=== PATIENT | male | born 1960 | race Caucasian/White ===

== ENCOUNTER 2022-05-14 09:43 | Outpatient (REF) | payer BC, SELFPAY ==
--- NOTE | 2022-05-14 11:04 | PFT_ITS ---
Forced vital capacity 71%, FEV1 42%, FEV1/FVC ratio is 45. FEF 25-75 is 15% and MVV 44%. Post bronchodilator therapy, there is only minimal improvement in FEV1 and FEF 25-75. Total lung capacity 92% and residual volume is 141% indicating air trapping. Diffusion capacity is 68%. CONCLUSION: These findings are consistent with severe obstructive airway disorder. There is a mild improvement after bronchodilator therapy, indicating a small degree of bronchospastic component. Compared to the results of 01/02/2017, the diffusion capacity is further decreased. Six minutes walk test was done. Results are as follows. Resting O2 saturation 96%. Excess and O2 saturation during exercise was 94%. Resting heart rate 116 to 133, and maximum heart rate during exercise was 133. The patient was able to walk without any obvious shortness of breath. MD SANDIE Bautista/DREA / [id number]
== END 2022-05-14 09:44 | disposition home or self-care (01) ==
LOC: HO.RESP 09:43
PROVIDERS: PCP Nurse Practitioner Family; Visit Provider Internal Medicine
DX: J44.9 Chronic obstructive pulmonary disease, unspecified (principal); G47.33 Obstructive sleep apnea (adult) (pediatric)
CPT/HCPCS: 94060; 94727; 94729

== ENCOUNTER → 2023-02-24 10:30 | Outpatient (BNVA) | payer BC, SELFPAY | PROVIDERS: PCP Nurse Practitioner Family; Visit Provider Internal Medicine ==

== ENCOUNTER 2023-09-01 10:13 | Outpatient (AMB) | payer BC, SELFPAY ==
[2023-09-01 10:27] VITALS: BP 110/68; PULSE 66; O2SAT 96; BMI 35.3
--- NOTE | 2023-09-01 10:27 | MHC.OFFVIS ---
Intake Vital Signs 09/01/23 10:27 Height 5 ft 10 in Weight 246 lb BMI 35.3 BP 110/68 Blood Pressure Location Lt brachial Position Sitting Pulse 66 Pulse Source Pulse Oximeter Pulse Oximetry (%) 96 Oxygen Delivery Method Room Air Intake Visit Reasons: DIANNA/COPD Intake Note: pt is here for follow up and states he states his breathing is getting little tuff at times, walking up stairs . Remote Encoding Center Manager Required: No Allergies No Known Allergies Allergy (Unverified 09/01/23 10:56) Medication List - Last Reconciled 09/01/23 by Tanesha Funes MD albuterol sulfate 90 mcg/actuation 2 puffs inhalation Q6H PRN apixaban (Eliquis) 5 mg PO BID diltiazem HCl 360 mg PO DAILY eupwubwhtut-muebhdlhr-svvtscys 200-62.5-25 mcg (Trelegy Ellipta) 1 ea PO DAILY metoprolol succinate ER 150 mg PO DAILY nicotine 1 patch topical DAILY Do you need a note to return to daycare/school/sports/work: No HPI DIANNA/COPD HPI Details 62 years old gentleman is moderately obese, a smoker and a case of chronic obstructive pulmonary disease. Uses Trelegy 1 inhalation daily, and albuterol HFA only once in a while. He does get short of breath on walking up hill or climbing stairs but not at level ground. He has only intermittent cough usually in the morning. Since his last visit he did have a home-based sleep study at [facility], he was put on CPAP but could not use it so returned the machine. Now he sleeps fairly well, and tries to sleep on his right side. He has not been able to lose any weight rather has gained some and this depends upon the level of fluid retention, due to chronic congestive heart failure as well as stasis edema. Still smokes but no more than 3 cigarettes a day, he has tried Chantix without much success and currently has nicotine patches at home, which he is using only as needed. 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) ENT Reports no additional complaints Card Reports rapid heart rate and Reports dyspnea on exertion Resp Reports as per HPI and Reports dyspnea on exertion GI Reports no additional complaints Reports no additional complaints Musc Reports no additional complaints Skin/Breast Reports system reviewed and no additional complaints, except as documented Neuro Reports no additional complaints and Reports loss of vision (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) Psych Reports no additional complaints Josh/Lymph Reports no additional complaints Physical Exam Vital Signs: Last Vital Signs Pulse 66 09/01/23 10:27 BP 110/68 09/01/23 10:27 Pulse Ox 96 09/01/23 10:27 Oxygen Delivery Method Room Air 09/01/23 10:27 BMI result Body Mass Index 35.3 Const General: healthy appearing (Except for being overweight), comfortable, no acute distress, alert and awake Orientation/consciousness: patient oriented x3 HEENT Head: Yes normal to inspection General nose exam: No nasal polyps present and No nasal discharge present Face and sinus: Yes sinuses nontender Mouth: oropharynx abnormals (Oropharynx is crowded, Mallampati class 4) Throat: Yes posterior oropharynx normal Eyes General: appearance normal, both eyes and all related structures Alignment and Position: other Neck Neck: Yes normal visual inspection, Yes no lymphadenopathy, Yes trachea midline, Yes no JVD and Yes other (Neck circumference 16-1/2 inch) Thyroid: Thyroid normal Chest Chest palpation & inspection: normal inspection of the chest and no tenderness Resp Other: Percussion note resonant,, Breath sounds are distant with prolonged. Expiratory phase But no wheezes rhonchi or crepitations are heard. Cardio Palpation: normal PMI Rate: tachycardic Rhythm: regular rhythm Heart sounds: no gallops and no murmurs Peripheral pulses: Peripheral pulses 2+ throughout GI Palpation (GI): Soft to palpation, nontender, No hepatosplenomegaly present and no masses Auscultation: normal bowel sounds Back/Spine/Pelvis Thoracic/Lumbar Spine: thoracic and lumbar spine normal to inspection and thoraco-lumbar ROM limited Skin General skin exam: no rashes or lesions noted Neuro General: patient oriented x3 and no focal motor deficits Cranial nerves: Yes CN's II-XII intact bilaterally Extrem General: Yes normal to inspection, Yes no calf tenderness and Yes edema (1+ pitting edema of the legs.) Psych Appearance: grossly normal and well kempt Speech and movement: Normal speech and movement present Assessment & Plan Assessment & Plan (1) Smoker: Comment: Long-time smoker. Goes back to smoking off and on, currently on nicotine patch 21 mg and using only off and on. Smoking down to 3 cigarettes a day. Code(s): F17.200 - Nicotine dependence, unspecified, uncomplicated Plan: Risk of continued smoking is explained, and strongly counseled to quit He gets his Annual low-dose CT scan of his chest at [facility] . Does have nicotine patch at home which he would use p.r.n. if there is an increase did urge to smoke. (2) COPD (chronic obstructive pulmonary disease): Comment: PULMONARY FUNCTION TEST IN 2017 CONFIRMED THAT HE HAD SEVERE OBSTRUCTIVE AIRWAY DISORDER. LAST PULMONARY FUNCTION TEST AT OUR LAB ON 05/14/22 ALSO CONFIRMED THAT HE HAS SEVERE OBSTRUCTIVE AIRWAY DISORDER. THIS IS DEFINITELY RELATED TO HIS CONTINUED SMOKING . Code(s): J44.9 - Chronic obstructive pulmonary disease, unspecified Plan: [place]: Advised to quit smoking completely as soon as possible. He is trying to do his best. Continue to use Trelegy 1 inhalation daily, Albuterol HFA 2 puffs Q 4-6 hours p.r.n. but try to keep the use as minimal as possible. (3) Obesity (BMI 30-39.9): Comment: PATIENT IS MODERATELY OBESE, NECK SIZE 16-1/2 INCH MALLAMPATI CLASS 4. HE DOES HAVE SIGNIFICANT RISK FACTOR FOR OBSTRUCTIVE SLEEP APNEA. Code(s): E66.9 - Obesity, unspecified Plan: ADVISED TO WATCH HIS DIET AND ALSO, MAY NEED ADEQUATE DIURETIC THERAPY TO KEEP THE FLUID RETENTION DOWN TO MINIMAL. (4) DIANNA (obstructive sleep apnea): Comment: HE HAS LONGSTANDING HISTORY OF OBSTRUCTIVE SLEEP APNEA, HAS NOT BEEN ABLE TO USE THE CPAP. THE LAST HOME-BASED SLEEP STUDY PERFORMED WITHIN THE LAST 6 MONTHS, DID CONFIRM DIANNA AND HE WAS STARTED ON CPAP THERAPY. ONCE AGAIN HE COULD NOT TOLERATE USE OF CPAP AND HAS GIVEN AWAY THE EQUIPMENT. HE CLAIMS THAT HE CAN SLEEP WELL LONG HE SLEEPS ON HIS RIGHT SIDE. Code(s): G47.33 - Obstructive sleep apnea (adult) (pediatric) Plan: INSTRUCTED THAT HE SHOULD TRY TO LOSE WEIGHT Coding Level of Care Code Est Pt Level 3 (32180) Diagnoses Smoker F17.200 COPD (chronic obstructive pulmonary disease) J44.9 Obesity (BMI 30-39.9) E66.9 DIANNA (obstructive sleep apnea) G47.33
== END 2023-09-01 10:58 | disposition home or self-care (01) ==
PROVIDERS: PCP Nurse Practitioner Family; Visit Provider Internal Medicine
DX: F17.200 Nicotine dependence, unspecified, uncomplicated (principal); J44.9 Chronic obstructive pulmonary disease, unspecified; E66.9 Obesity, unspecified; G47.33 Obstructive sleep apnea (adult) (pediatric)
CPT/HCPCS: 99213

== ENCOUNTER → 2023-09-01 10:13 | Outpatient (BNVA) | payer BC, SELFPAY | PROVIDERS: PCP Nurse Practitioner Family; Visit Provider Internal Medicine ==

== ENCOUNTER 2024-02-16 09:30 | Outpatient (AMB) | payer BC, SELFPAY ==
--- NOTE | 2024-02-16 09:41 | A.OFFVIS_ITS ---
Vital Signs 02/16/24 09:44 Height 5 ft 10 in Weight 249 lb 0.12 oz BMI 35.7 BP 102/64 Blood Pressure Location Lt brachial Position Sitting Pulse 112 H Pulse Source Pulse Oximeter Pulse Oximetry (%) 95 Intake Visit Reasons: chrissie/copd Intake Note: pt is here for follow up and states he has some short of breath at times. Herbicide Service Sales Representative Required: No Allergies No Known Allergies Allergy (Unverified 02/16/24 09:59) Medication List - Last Reconciled 02/16/24 by Tanesha Funes MD albuterol sulfate 90 mcg/actuation 2 puffs inhalation Q6H PRN apixaban (Eliquis) 5 mg PO BID diltiazem HCl CD 360 mg PO DAILY tmfviwrmsxo-zqplkvhdt-bqydvlnm 200-62.5-25 mcg (Trelegy Ellipta) 1 ea PO DAILY metoprolol succinate ER 150 mg PO DAILY Do you need a note to return to daycare/school/sports/work: No HPI HPI chrissie/copd: Details: 63 YEARS OLD GENTLEMAN WHO IS MODERATELY OBESE AND DOES HAVE HISTORY OF OBSTRUCTIVE SLEEP APNEA BUT COULD NOT TOLERATE THE CPAP, HE CLAIMS. THAT HE SLEEPS OKAY ,HE IS IS SMOKER HAS CUT DOWN TO HALF PACK A DAY, HAS LONGSTANDING HISTORY OF COPD, USING TRELEGY 1 INHALATION DAILY AND ALBUTEROL ONLY NEEDED. HE COMPLAINS OF MILD INTERMITTENT COUGH WHICH IS MOST LIKELY RELATED, TO SMOKING AND ALSO SHORTNESS OF BREATH ON EXERTION. HE IS IN ANNUAL LUNG SCREENING PROGRAM AT [facility]. 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) ENT Reports no additional complaints Card Reports rapid heart rate and Reports dyspnea on exertion Resp Reports as per HPI and Reports dyspnea on exertion GI Reports no additional complaints Reports no additional complaints Musc Reports no additional complaints Skin/Breast Reports system reviewed and no additional complaints, except as documented Neuro Reports no additional complaints and Reports loss of vision (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) Psych Reports no additional complaints Josh/Lymph Reports no additional complaints Physical Exam Vital Signs: Last Vital Signs Pulse 112 H 02/16/24 09:44 BP 102/64 02/16/24 09:44 Pulse Ox 95 02/16/24 09:44 BMI result Body Mass Index 35.7 Const General: healthy appearing (Except for being overweight), comfortable, no acute distress, alert and awake Orientation/consciousness: patient oriented x3 HEENT Head: Yes normal to inspection General nose exam: No nasal polyps present and No nasal discharge present Face and sinus: Yes sinuses nontender Mouth: oropharynx abnormals (Oropharynx is crowded, Mallampati class 4) Throat: Yes posterior oropharynx normal Eyes General: appearance normal, both eyes and all related structures Alignment and Position: other Neck Neck: Yes normal visual inspection, Yes no lymphadenopathy, Yes trachea midline, Yes no JVD and Yes other (Neck circumference 16-1/2 inch) Thyroid: Thyroid normal Chest Chest palpation & inspection: normal inspection of the chest and no tenderness Resp Other: Percussion note resonant,, Breath sounds are distant with prolonged. Expiratory phase Has a few expiratory wheezes over the left mid chest, no crepitations. Cardio Palpation: normal PMI Rate: tachycardic Rhythm: regular rhythm Heart sounds: no gallops and no murmurs Peripheral pulses: Peripheral pulses 2+ throughout GI Palpation (GI): Soft to palpation, nontender, No hepatosplenomegaly present and no masses Auscultation: normal bowel sounds Back/Spine/Pelvis Thoracic/Lumbar Spine: thoracic and lumbar spine normal to inspection and thoraco-lumbar ROM limited Skin General skin exam: no rashes or lesions noted Neuro General: patient oriented x3 and no focal motor deficits Cranial nerves: Yes CN's II-XII intact bilaterally Extrem General: Yes normal to inspection, Yes no calf tenderness and Yes edema (1+ pitting edema of the legs.) Psych Appearance: grossly normal and well kempt Speech and movement: Normal speech and movement present Assessment & Plan Assessment & Plan (1) Smoker: Comment: Long-time smoker. Goes back to smoking off and on, has tried everything but did not work . Currently smoking half pack of cigarettes a day. Code(s): F17.200 - Nicotine dependence, unspecified, uncomplicated Category: Social Hx Plan: Counseled to quit smoking, and at least cut down the number of cigarettes gradually. Risks of continued smoking explained. (2) COPD (chronic obstructive pulmonary disease): Comment: PULMONARY FUNCTION TEST IN 2017 CONFIRMED THAT HE HAD SEVERE OBSTRUCTIVE AIRWAY DISORDER. LAST PULMONARY FUNCTION TEST AT OUR LAB ON 05/14/22 ALSO CONFIRMED THAT HE HAS SEVERE OBSTRUCTIVE AIRWAY DISORDER. THIS IS DEFINITELY RELATED TO HIS CONTINUED SMOKING . Code(s): J44.9 - Chronic obstructive pulmonary disease, unspecified Category: Medical Plan: Trelegy Ellipta 1 inhalation daily. Albuterol HFA 2 puffs Q 4-6 hours p.r.n.. (3) CHRISSIE (obstructive sleep apnea): Comment: HE HAS LONGSTANDING HISTORY OF OBSTRUCTIVE SLEEP APNEA, HAS NOT BEEN ABLE TO USE THE CPAP. HE CLAIMS THAT HE SLEEPS FAIRLY WELL. Code(s): G47.33 - Obstructive sleep apnea (adult) (pediatric) Category: Medical Plan: COUNSELED THAT HE MUST TRY TO CUT DOWN HIS WEIGHT. AND ALSO ADVISED TO SLEEP. IN LATERAL POSITION Coding Level of Care Code Est Pt Level 3 (61781) Diagnoses Smoker F17.200 COPD (chronic obstructive pulmonary disease) J44.9 CHRISSIE (obstructive sleep apnea) G47.33
[2024-02-16 09:44] VITALS: BP 102/64; PULSE 112; O2SAT 95; BMI 35.7
== END 2024-02-16 10:10 | disposition home or self-care (01) ==
PROVIDERS: PCP Nurse Practitioner Family; Visit Provider Internal Medicine
DX: F17.200 Nicotine dependence, unspecified, uncomplicated (principal); J44.9 Chronic obstructive pulmonary disease, unspecified; G47.33 Obstructive sleep apnea (adult) (pediatric)
CPT/HCPCS: 99213

== ENCOUNTER → 2024-02-16 09:30 | Outpatient (BNVA) | payer BC, SELFPAY | PROVIDERS: PCP Nurse Practitioner Family; Visit Provider Internal Medicine ==

== ENCOUNTER 2024-05-18 12:56 | Outpatient (AMB) | payer BC, SELFPAY ==
[2024-05-18 13:19] VITALS: BP 110/62; PULSE 90; O2SAT 94; BMI 35.4
--- NOTE | 2024-05-18 13:19 | MHC.OFFVIS ---
Vital Signs 05/18/24 13:19 Height 5 ft 10 in Weight 247 lb BMI 35.4 BP 110/62 Blood Pressure Location Lt brachial Position Sitting Pulse 90 Pulse Source Pulse Oximeter Pulse Oximetry (%) 94 Oxygen Delivery Method Room Air Intake Visit Reasons: DIANNA/COPD Intake Note: pt is here for follow up and states shortness of breath at times, any activities is causing this. Medical Records Library Professor Required: No Allergies No Known Allergies Allergy (Unverified 05/18/24 13:48) Medication List - Last Reconciled 05/18/24 by Tanesha Funes MD albuterol sulfate 90 mcg/actuation 2 puffs inhalation Q6H PRN apixaban (Eliquis) 5 mg PO BID diltiazem HCl CD 360 mg PO DAILY nxekklxpuro-ettdbimbu-nqcibvro 200-62.5-25 mcg (Trelegy Ellipta) 1 ea PO DAILY hydroxyzine HCl 25 mg PO QID PRN metoprolol succinate ER 150 mg PO DAILY Do you need a note to return to daycare/school/sports/work: No HPI HPI DIANNA/COPD: Details: This 63 years old gentleman is a known case of severe obstructive lung disorder, for the past many years, as evident on his pulmonary function test back in 2007. It has gradually worsened . He continues to smoke half pack of cigarettes a day. He is on maximum treat moment including Trelegy 1 inhalation daily and albuterol p.r.n.. He gets short of breath quite often but is afraid use albuterol due to his atrial fibrillation and rapid heart rate. He does have atrial fibrillation and is on anticoagulation wi,th Eliq uis he is on diltiazem and metoprolol for rate control. Lately he has been getting some fluid retention in the legs. 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) ENT Reports no additional complaints Card Reports rapid heart rate and Reports dyspnea on exertion Resp Reports as per HPI and Reports dyspnea on exertion GI Reports no additional complaints Reports no additional complaints Musc Reports no additional complaints Skin/Breast Reports system reviewed and no additional complaints, except as documented Neuro Reports no additional complaints and Reports loss of vision (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) Psych Reports no additional complaints Josh/Lymph Reports no additional complaints Physical Exam Vital Signs: Last Vital Signs Pulse 90 05/18/24 13:19 BP 110/62 05/18/24 13:19 Pulse Ox 94 05/18/24 13:19 Oxygen Delivery Method Room Air 05/18/24 13:19 BMI result Body Mass Index 35.4 Const General: healthy appearing (Except for being overweight), comfortable, no acute distress, alert and awake Orientation/consciousness: patient oriented x3 HEENT Head: Yes normal to inspection General nose exam: No nasal polyps present and No nasal discharge present Face and sinus: Yes sinuses nontender Mouth: oropharynx abnormals (Oropharynx is crowded, Mallampati class 4) Throat: Yes posterior oropharynx normal Eyes General: appearance normal, both eyes and all related structures Alignment and Position: other Neck Neck: Yes normal visual inspection, Yes no lymphadenopathy, Yes trachea midline, Yes no JVD and Yes other (Neck circumference 16-1/2 inch) Thyroid: Thyroid normal Chest Chest palpation & inspection: normal inspection of the chest and no tenderness Resp Other: Percussion note resonant,, Breath sounds are distant with prolonged. Expiratory phase Has a few expiratory wheezes over the left mid chest, no crepitations. Cardio Palpation: normal PMI Rate: tachycardic Rhythm: regular rhythm Heart sounds: no gallops and no murmurs Peripheral pulses: Peripheral pulses 2+ throughout GI Palpation (GI): Soft to palpation, nontender, No hepatosplenomegaly present and no masses Auscultation: normal bowel sounds Back/Spine/Pelvis Thoracic/Lumbar Spine: thoracic and lumbar spine normal to inspection and thoraco-lumbar ROM limited Skin General skin exam: no rashes or lesions noted Neuro General: patient oriented x3 and no focal motor deficits Cranial nerves: Yes CN's II-XII intact bilaterally Extrem General: Yes normal to inspection, Yes no calf tenderness and Yes edema (2+ pitting edema of the legs.) Psych Appearance: grossly normal and well kempt Speech and movement: Normal speech and movement present Office Procedures 6 Minute Walk Time:: 13:55 SPO2 % at rest: 94 Pulse at rest: 92 SPO2 % during excercise: 86 Pulse during excercise: 173 SPO2 % after excercise: 94 Pulse after excercise: 99 Distance in yards walked: 50 Jake Score: 7 Performance Observations:: Eber walked on level ground without assistance, he walked for 15 yards before his HR increased to 134 bpm, with a brief rest his HR recovered to 100 bpm. He walked another 10 yards and his HR increased to 150 bpm and recovered to 98 bpm with a brief rest. At 50 yards his SPO2 decreased to 86% on room air and his HR increased to 173 bpm (denies chest pain or increased SOB). O2 started at 2 lpm and his SPO2 recovered to 94% and the walk was terminated due to his HR. With rest his HR recovered to [address] [place]. [id number] - 6 Minute Walk Spirometry Testing Spirometry Comments: Spirometry done in the office, Dr. Funes has the results results scanned to his chart. [id number]- Spirometry Results Reviewed Results Reviewed: SPIROMETRY FVC 43%, FEV1 26%, FEV1/FVC 47, FEF 25-75 = 14% C/W SEVERE OBSTRUCTIVE AIRWAY DISORDER AND IS DEFINITELY WORSE COMPARED TO 2021. 6 MINUTES WALK TEST . O2 SAT DIPS DOWN TO 87% AND HEART RATE JUMPED UP TO 173 PER MINUTE Assessment & Plan Assessment & Plan (1) Smoker: Comment: Long-time smoker. Goes back to smoking off and on, has tried everything but did not work . Currently smoking half pack of cigarettes a day. Code(s): F17.200 - Nicotine dependence, unspecified, uncomplicated Category: Social Hx Plan: BECAUSE OF HIS WORSENING STATUS OF COPD ,AND QUICK DESATURATION ON WALKING, I HAVE STRESSED THAT HE MUST STOP SMOKING COMPLETELY. AND HE SEEMS TO BE WELL MOTIVATED AT THIS TIME. (2) COPD (chronic obstructive pulmonary disease): Comment: PULMONARY FUNCTION TEST IN 2017 CONFIRMED THAT HE HAD SEVERE OBSTRUCTIVE AIRWAY DISORDER. LAST PULMONARY FUNCTION TEST AT OUR LAB ON 05/14/22 ALSO CONFIRMED THAT HE HAS SEVERE OBSTRUCTIVE AIRWAY DISORDER. THIS IS DEFINITELY RELATED TO HIS CONTINUED SMOKING . SPIROMETRY TODAY SHOWS THAT HIS OBSTRUCTIVE COMPONENT IS MUCH WORSE. Code(s): J44.9 - Chronic obstructive pulmonary disease, unspecified Category: Medical Plan: TRELEGY 1 INHALATION DAILY. LEVALBUTEROL 1 OR 2 PUFFS Q 6 HOURS P.R.N. ( ALBUTEROL IS STOP BECAUSE OF TACHYCARDIA) (3) DIANNA (obstructive sleep apnea): Comment: HE HAS LONGSTANDING HISTORY OF OBSTRUCTIVE SLEEP APNEA, HAS NOT BEEN ABLE TO USE THE CPAP. HE CLAIMS THAT HE SLEEPS FAIRLY WELL. WE NEED TO CHECK HIM FOR NOCTURNAL HYPOXEMIA . Code(s): G47.33 - Obstructive sleep apnea (adult) (pediatric) Category: Medical Plan: OVERNIGHT OXIMETRY RECORDING IS ORDERED (4) Hypoxemia: Comment: BECAUSE OF HIS ADVANCED CHRONIC OBSTRUCTIVE PULMONARY DISEASE, AND ASSOCIATED ATRIAL FIBRILLATION WITH MILD CONGESTIVE HEART FAILURE, I SUSPECTED THAT HE HAS EXERTIONAL HYPOXEMIA. IT IS CONFIRMED W.ITH 6 MINUTES WALK TEST HE WAS STARTED ON O2 2 L/MINUTE AND FELT BETTER. Code(s): R09.02 - Hypoxemia Category: Medical Plan: O2 PRESCRIBED FOR HOME USE . 2 L/MINUTE WITH, PORTABLE UNIT FOR ANY PHYSICAL ACTIVITY. MAY ALSO USE 2 L/MINUTE AT REST. IF HE IS MORE SHORT OF BREATH WILL NEED TO BE CHECKED FOR NOCTURNAL HYPOXEMIA AND IF THAT IS THE CASE THEN HE WOULD NEED O2 2 L/MINUTE AT NIGHT WELL Orders: Orders AMB Spirometry Testing Today J44.9 - Chronic obstructive pulmonary disease, unspecified Coding Level of Care Code Est Pt Level 4 (22074) Diagnoses Smoker F17.200 COPD (chronic obstructive pulmonary disease) J44.9 DIANNA (obstructive sleep apnea) G47.33 Hypoxemia R09.02 CPT Codes Coding ([id number]) Spirometry - CPT: 13821- Spirometry ([id number])
[2024-05-18 14:09] VITALS: PULSE 92; O2SAT 94
== END 2024-05-18 14:14 | disposition home or self-care (01) ==
PROVIDERS: PCP Family Medicine; Visit Provider Internal Medicine
DX: F17.200 Nicotine dependence, unspecified, uncomplicated (principal); J44.9 Chronic obstructive pulmonary disease, unspecified; G47.33 Obstructive sleep apnea (adult) (pediatric); R09.02 Hypoxemia
CPT/HCPCS: 94010; 94618; 99214

== ENCOUNTER → 2024-05-18 12:56 | Outpatient (BNVA) | payer BC, SELFPAY | PROVIDERS: Visit Provider Internal Medicine | DX: J44.9 Chronic obstructive pulmonary disease, unspecified (principal); R09.02 Hypoxemia; G47.33 Obstructive sleep apnea (adult) (pediatric); F17.210 Nicotine dependence, cigarettes, uncomplicated | CPT/HCPCS: 94010; 94618 ==

== ENCOUNTER 2024-06-07 14:06 | Outpatient (AMB) | payer BC, SELFPAY ==
[2024-06-07 14:16] VITALS: BP 112/64; PULSE 86; O2SAT 98
--- NOTE | 2024-06-07 14:16 | A.OFFVIS_ITS ---
Vital Signs 06/07/24 14:16 Weight 249 lb 1.957 oz BP 112/64 Blood Pressure Location Rt brachial Position Sitting Pulse 86 Pulse Source Pulse Oximeter Pulse Oximetry (%) 98 Oxygen Delivery Method Room Air Intake Visit Reasons: DIANNA/COPD Allergies No Known Allergies Allergy (Unverified 06/07/24 14:50) Medication List - Last Reconciled 06/07/24 by Tanesha Funes MD albuterol sulfate 90 mcg/actuation 2 puffs inhalation Q6H PRN apixaban (Eliquis) 5 mg PO BID diltiazem HCl CD 360 mg PO DAILY gwmeqeexspu-rxrnlygbn-qrhrljpp 200-62.5-25 mcg (Trelegy Ellipta) 1 ea PO DAILY hydroxyzine HCl 25 mg PO QID PRN metoprolol succinate ER 150 mg PO DAILY Do you need a note to return to daycare/school/sports/work: No HPI HPI DIANNA/COPD: Details: THIS 63 YEARS OLD GENTLEMAN IS HERE FOR FOLLOW-UP. FAR COPD IS CONCERNED IT SEEMS TO BE WELL CONTROLLED BY USING TRELEGY ONCE A DAY. HE HAS NOT USE ALBUTEROL TOO MUCH BECAUSE HE IS AFRAID IT MAKES HIS HEART BEAT FAST. HE HAS VERY LITTLE COUGH. HE DOES USE OXYGEN WHEN HE WALKS AROUND, BUT ACTUALLY IT IS THE 1ST TIME THAT HE HAS COME OUT OF THE HOUSE FOR OFFICE VISIT. HE ALSO HAS ATRIAL FIBRILLATION AND IS AFRAID OF RUNNING INTO TACHYARRHYTHMIAS WITH THE USE OF ALBUTEROL . HE DOES USE OF JOSE 2 L/MINUTE AT NIGHT AND WITH THE PORTABLE UNIT IF HE COMES OUTDOORS BUT ACCORDING TO HIS HE DOES NOT MOVE AROUND MUCH. 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) ENT Reports no additional complaints Card Reports rapid heart rate and Reports dyspnea on exertion Resp Reports as per HPI and Reports dyspnea on exertion GI Reports no additional complaints Reports no additional complaints Musc Reports no additional complaints Skin/Breast Reports system reviewed and no additional complaints, except as documented Neuro Reports no additional complaints and Reports loss of vision (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) Psych Reports no additional complaints Josh/Lymph Reports no additional complaints Physical Exam Vital Signs: Last Vital Signs Pulse 86 06/07/24 14:16 BP 112/64 06/07/24 14:16 Pulse Ox 98 06/07/24 14:16 Oxygen Delivery Method Room Air 06/07/24 14:16 Const General: healthy appearing (Except for being overweight), comfortable, no acute distress, alert and awake Orientation/consciousness: patient oriented x3 HEENT Head: Yes normal to inspection General nose exam: No nasal polyps present and No nasal discharge present Face and sinus: Yes sinuses nontender Mouth: oropharynx abnormals (Oropharynx is crowded, Mallampati class 4) Throat: Yes posterior oropharynx normal Eyes General: appearance normal, both eyes and all related structures Alignment and Position: other Neck Neck: Yes normal visual inspection, Yes no lymphadenopathy, Yes trachea midline, Yes no JVD and Yes other (Neck circumference 16-1/2 inch) Thyroid: Thyroid normal Chest Chest palpation & inspection: normal inspection of the chest and no tenderness Resp Other: Percussion note resonant,, Breath sounds are distant with prolonged. Expiratory phase Has a few expiratory wheezes over the left mid chest, no crepitations. Cardio Palpation: normal PMI Rate: tachycardic Rhythm: regular rhythm Heart sounds: no gallops and no murmurs Peripheral pulses: Peripheral pulses 2+ throughout GI Palpation (GI): Soft to palpation, nontender, No hepatosplenomegaly present and no masses Auscultation: normal bowel sounds Back/Spine/Pelvis Thoracic/Lumbar Spine: thoracic and lumbar spine normal to inspection and thoraco-lumbar ROM limited Skin General skin exam: no rashes or lesions noted Neuro General: patient oriented x3 and no focal motor deficits Cranial nerves: Yes CN's II-XII intact bilaterally Extrem General: Yes normal to inspection, Yes no calf tenderness and Yes edema (2+ pitting edema of the legs.) Psych Appearance: grossly normal and well kempt Speech and movement: Normal speech and movement present Results Reviewed Results Reviewed: WALKED IN THE HALLWAY FOR 4 MINUTES WITH O2 2 L/MINUTE AND THERE WAS NO SIGNIFICANT DROP IN THE O2 SAT. RESTING O2 SAT 96%. AFTER WALK IT WAS 94% Assessment & Plan Assessment & Plan (1) COPD (chronic obstructive pulmonary disease): Comment: PULMONARY FUNCTION TEST IN 2017 CONFIRMED THAT HE HAD SEVERE OBSTRUCTIVE AIRWAY DISORDER. LAST PULMONARY FUNCTION TEST AT OUR LAB ON 05/14/22 ALSO CONFIRMED THAT HE HAS SEVERE OBSTRUCTIVE AIRWAY DISORDER. THIS IS DEFINITELY RELATED TO HIS CONTINUED SMOKING . SPIROMETRY TODAY SHOWS THAT HIS OBSTRUCTIVE COMPONENT IS MUCH WORSE. Code(s): J44.9 - Chronic obstructive pulmonary disease, unspecified Category: Medical Plan: CONTINUE TRELEGY ELLIPTA 1 INHALATION DAILY; LEVALBUTEROL-45 2 PUFFS Q 4-6 HOURS P.R.N. FOR ACUTE WHEEZING OR SHORTNESS OF BREATH. (2) Hypoxemia: Comment: BECAUSE OF HIS ADVANCED CHRONIC OBSTRUCTIVE PULMONARY DISEASE, AND ASSOCIATED ATRIAL FIBRILLATION WITH MILD CONGESTIVE HEART FAILURE, I SUSPECTED THAT HE HAS EXERTIONAL HYPOXEMIA. IT IS CONFIRMED W.ITH 6 MINUTES WALK TEST HE IS ADVISED TO USE O2 2 L/MINUTE Code(s): R09.02 - Hypoxemia Category: Medical Plan: HE IS ADVISED TO USE O2 2 L/MINUTE WITH ANY PHYSICAL ACTIVITY ON WHEN GOING OUTDOORS. (3) Smoker: Comment: Long-time smoker. Goes back to smoking off and on, has tried everything but did not work . Currently smoking half pack of cigarettes a day. Code(s): F17.200 - Nicotine dependence, unspecified, uncomplicated Category: Social Hx Plan: AGAIN TALKED TO HIM ABOUT SMOKING AND URGED THAT HE SHOULD QUIT SMOKING COMPLETELY (4) DIANNA (obstructive sleep apnea): Comment: HE HAS LONGSTANDING HISTORY OF OBSTRUCTIVE SLEEP APNEA, HAS NOT BEEN ABLE TO USE THE CPAP. HE CLAIMS THAT HE SLEEPS FAIRLY WELL. WE NEED TO CHECK HIM FOR NOCTURNAL HYPOXEMIA . Code(s): G47.33 - Obstructive sleep apnea (adult) (pediatric) Category: Medical Plan: NOW THAT HE DOES HAVE OXYGEN AT HOME I WOULD ADVISE HIM TO USE O2 2 L/MINUTE AT NIGHT WHEN SLEEPING Medications: New levalbuterol tartrate 45 mcg/actuation 2 puffs inhalation Q4-6H 30 days PRN 15 grams 3RF shortness of breath Coding Level of Care Code Est Pt Level 4 (92374) Diagnoses COPD (chronic obstructive pulmonary disease) J44.9 Hypoxemia R09.02 Smoker F17.200 DIANNA (obstructive sleep apnea) G47.33
== END 2024-06-07 14:48 | disposition home or self-care (01) ==
PROVIDERS: PCP Family Medicine; Visit Provider Internal Medicine
DX: J44.9 Chronic obstructive pulmonary disease, unspecified (principal); R09.02 Hypoxemia; F17.200 Nicotine dependence, unspecified, uncomplicated; G47.33 Obstructive sleep apnea (adult) (pediatric)
CPT/HCPCS: 99214

== ENCOUNTER → 2024-06-07 14:06 | Outpatient (BNVA) | payer BC, SELFPAY | PROVIDERS: PCP Family Medicine; Visit Provider Internal Medicine | DX: J44.9 Chronic obstructive pulmonary disease, unspecified (principal) ==

== ENCOUNTER 2024-10-05 11:03 | Outpatient (AMB) | payer BC, SELFPAY ==
--- NOTE | 2024-10-05 11:20 | A.OFFVIS_ITS ---
Vital Signs 10/05/24 11:21 Height 5 ft 10 in Weight 270 lb 1.06 oz BMI 38.7 BP 102/70 Blood Pressure Location Lt brachial Position Sitting Pulse 82 Pulse Source Pulse Oximeter Pulse Oximetry (%) 98 Oxygen Delivery Method Nasal Cannula Oxygen Flow Rate 2 Intake Visit Reasons: DIANNA/COPD Intake Note: pt is here for follow up and states he it is hard to do things, sleeping is not good, but oxygen is 2 liters at night. Hardware Sales Assistant Required: No Allergies No Known Allergies Allergy (Unverified 10/05/24 11:43) Medication List - Last Reconciled 10/05/24 by Tanesha Funes MD albuterol sulfate 90 mcg/actuation 2 puffs inhalation Q6H PRN apixaban (Eliquis) 5 mg PO BID diltiazem HCl CD 360 mg PO DAILY rjjzedktwqb-dsvifmmiz-bjzkaewv 200-62.5-25 mcg (Trelegy Ellipta) 1 ea PO DAILY hydroxyzine HCl 25 mg PO QID PRN levalbuterol tartrate 45 mcg/actuation 2 puffs inhalation Q4-6H PRN 30 days metoprolol succinate ER 150 mg PO DAILY Do you need a note to return to daycare/school/sports/work: No HPI HPI DIANNA/COPD: Details: THIS 63 YEARS OLD GENTLEMAN GROSSLY OBESE, HAS SEVERE OBSTRUCTIVE AIRWAY DISORDER. HE HAS HAD LONGSTANDING HISTORY OF SMOKING BUT LUCKILY HAS QUIT RECENTLY. HAS GAINED SOME WEIGHT WHICH IS PROBABLY DUE TO SMOKING CESSATION. REMAINS SHORT OF BREATH ON ANY EXERTION, IT IS HELPED BY PORTABLE OXYGEN. HE ALSO HAS HISTORY OF OBSTRUCTIVE SLEEP APNEA BUT COULD NOT USE THE CPAP. HE USES O2 2 L/MINUTE AT NIGHT, AND NOW HE HAS PORTABLE O2, USING 2 L/MINUTE WITH ANY PHYSICAL EXERTION. HE DOES GET SHORT OF BREATH ON MINIMAL WALKING. DENIES ANY COUGH OR WHEEZING. USES TRELEGY ELLIPTA 1 INHALATION DAILY AND LEVALBUTEROL ONLY NEEDED. 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) ENT Reports no additional complaints Card Reports rapid heart rate and Reports dyspnea on exertion Resp Reports as per HPI and Reports dyspnea on exertion GI Reports no additional complaints Reports no additional complaints Musc Reports no additional complaints Skin/Breast Reports system reviewed and no additional complaints, except as documented Neuro Reports no additional complaints and Reports loss of vision (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) Psych Reports no additional complaints Josh/Lymph Reports no additional complaints Physical Exam Vital Signs: Last Vital Signs Pulse 82 10/05/24 11:21 BP 102/70 10/05/24 11:21 Pulse Ox 98 10/05/24 11:21 Oxygen Delivery Method Nasal Cannula 10/05/24 11:21 Oxygen Flow Rate 2 10/05/24 11:21 BMI result Body Mass Index 38.7 Const General: healthy appearing (Except for being overweight), comfortable, no acute distress, alert and awake Orientation/consciousness: patient oriented x3 HEENT Head: Yes normal to inspection General nose exam: No nasal polyps present and No nasal discharge present Face and sinus: Yes sinuses nontender Mouth: oropharynx abnormals (Oropharynx is crowded, Mallampati class 4) Throat: Yes posterior oropharynx normal Eyes General: appearance normal, both eyes and all related structures Alignment and Position: other Neck Neck: Yes normal visual inspection, Yes no lymphadenopathy, Yes trachea midline, Yes no JVD and Yes other (Neck circumference 16-1/2 inch) Thyroid: Thyroid normal Chest Chest palpation & inspection: normal inspection of the chest and no tenderness Resp Other: Percussion note resonant,, Breath sounds are distant with prolonged. Expiratory phase No wheezes or crepitations are heard today. Cardio Palpation: normal PMI Rate: tachycardic Rhythm: regular rhythm Heart sounds: no gallops and no murmurs Peripheral pulses: Peripheral pulses 2+ throughout GI Palpation (GI): Soft to palpation, nontender, No hepatosplenomegaly present and no masses Auscultation: normal bowel sounds Back/Spine/Pelvis Thoracic/Lumbar Spine: thoracic and lumbar spine normal to inspection and thoraco-lumbar ROM limited Skin General skin exam: no rashes or lesions noted Neuro General: patient oriented x3 and no focal motor deficits Cranial nerves: Yes CN's II-XII intact bilaterally Extrem General: Yes normal to inspection, Yes no calf tenderness and Yes edema (only trace of pitting edema, controlled with compression stockings.) Psych Appearance: grossly normal and well kempt Speech and movement: Normal speech and movement present Assessment & Plan Assessment & Plan (1) COPD (chronic obstructive pulmonary disease): Comment: PULMONARY FUNCTION TEST IN 2017 CONFIRMED THAT HE HAD SEVERE OBSTRUCTIVE AIRWAY DISORDER. LAST PULMONARY FUNCTION TEST AT OUR LAB ON 05/14/22 ALSO CONFIRMED THAT HE HAS SEVERE OBSTRUCTIVE AIRWAY DISORDER. SPIROMETRY ON 11/18/2023 AGAIN SHOWED SEVERE OBSTRUCTIVE AIRWAY DISORDER, SLIGHTLY WORSE THAN BEFORE. THIS WAS CONSIDERED TO BE DUE TO CONTINUED SMOKING. NOW THAT HE IS NOT SMOKING HIS LUNG SEEM TO BE MORE CLEAR. Code(s): J44.9 - Chronic obstructive pulmonary disease, unspecified Category: Medical Plan: CONTINUE TRELEGY ELLIPTA 1 INHALATION DAILY USE LEVALBUTEROL HFA 2 PUFFS Q 4-6 HOURS ONLY P.R.N., . BUT AVOID ANY EXCESSIVE USE HE IS COMMENDED FOR QUITTING SMOKING COMPLETELY. (2) DIANNA (obstructive sleep apnea): Comment: HE HAS LONGSTANDING HISTORY OF OBSTRUCTIVE SLEEP APNEA, HAS NOT BEEN ABLE TO USE THE CPAP. HE CLAIMS THAT HE SLEEPS FAIRLY WELL. HE DOES HAVE NOCTURNAL HYPOXEMIA WHICH IS BEING TREATED WITH O2 SUPPLEMENTATION. Code(s): G47.33 - Obstructive sleep apnea (adult) (pediatric) Category: Medical Plan: CONTINUE TO USE O2 2 L/MINUTE AT NIGHT. (3) Hypoxemia: Comment: BECAUSE OF HIS ADVANCED CHRONIC OBSTRUCTIVE PULMONARY DISEASE, AND ASSOCIATED ATRIAL FIBRILLATION WITH MILD CONGESTIVE HEART FAILURE, I IN ADDITION TO NOCTURNAL HYPOXEMIA HE WAS ALSO FOUND TO HAVE EXERCISE INDUCED HYPOXEMIA, AND STARTED ON O2 WITH PORTABLE UNIT. HE DOES USE O2 DURING THE DAYTIME FOR ANY PHYSICAL EXERTION, ESPECIALLY BEFORE GOING FOR SHOWERS. Code(s): R09.02 - Hypoxemia Category: Medical Plan: I ENCOURAGED HIM TO KEEP USING OXYGEN AT NIGHT AND ALSO USE 2 L/MINUTE DURING THE DAYTIME WITH ANY PHYSICAL EXERTION. (4) Smoker: Comment: Long-time smoker. Goes back to smoking off and on, has tried everything but did not work . At present he has stop smoking completely, and is determined to stay off smoking. Code(s): F17.200 - Nicotine dependence, unspecified, uncomplicated Category: Social Hx Plan: Commended for stopping smoking completely. And encouraged not to go back to smoking. Coding Level of Care Code Est Pt Level 3 (39570) Diagnoses COPD (chronic obstructive pulmonary disease) J44.9 DIANNA (obstructive sleep apnea) G47.33 Hypoxemia R09.02 Smoker F17.200
[2024-10-05 11:21] VITALS: BP 102/70; PULSE 82; O2SAT 98; BMI 38.7
== END 2024-10-05 11:40 | disposition home or self-care (01) ==
PROVIDERS: PCP Family Medicine; Visit Provider Internal Medicine
DX: J44.9 Chronic obstructive pulmonary disease, unspecified (principal); G47.33 Obstructive sleep apnea (adult) (pediatric); R09.02 Hypoxemia; F17.200 Nicotine dependence, unspecified, uncomplicated
CPT/HCPCS: 99213

== ENCOUNTER → 2025-01-31 07:44 | Day surgery (SDC) | payer BC, SELFPAY ==
--- OUTSIDE RECORDS SUMMARY | 2025-01-18 13:13 | XMS_ITS | Patient Health Record ---
Author Organization [facility] Address [address] [place] [address] Care Team Providers Care Forestry Crew Chief Name Role Phone Ingrid MCCAULEY, Tanya Primary Care Provider Jose Guzmán Unavailable [phone] Allergies No Known Allergies Reason For Referral No Information Medications Medication SIG (Take, Route, Frequency, Duration) Notes Start Date End Date Status Cholecalciferol 25 MCG (1000 UT) 1 capsule Orally Once a day for 30 day(s) Active Advair HFA Active Spiriva Respimat 2.5 MCG/ACT 2 puffs Inh alation Once a day Active Docusate Sodium 100 MG 1 capsule as need ed Orally Once a day for 30 day(s) Active Social History Tobacco Use: Social History Observation Description Date Details (start date - stop date) Current Smoker 10/04/1979 - NA Tobacco Use/Smoking Question Answer Notes Are you a: current smoker When did you start smoking? 10/04/1979 How often do you smoke cigarettes? every day How many cigarettes a day do you smoke? 11-20 Alcohol Screen Question Answer Notes Did you have a drink containing alcohol in the p ast year? No Points 0 Interpretation Negative Tobacco use other than smoking: Question Answer Notes Are you an other tobacco user? No Plan Of Treatment Pending Test Test Name Order Date [id number] Plate 12/07/2020 Insurance Providers Payer Name Payer Address Payer Phone Subscriber Number Group Number Insured Name Patient Relationship to Insured Coverage Start Date Coverage End Date [facility] [address] [place] [address] [phone] [id number] Eber Jordan Self - patient is the insured Medical (General) History Medical History History ICD Code COPD Anxiety disorder Diverticulosis Inguinal Hernia Surgical History Surgery Date(Month/Year) hernia repair mars inguinal 05/04/2020 prostate biopsy Lipoma resection from back
[2025-01-27 13:08] VITALS: BMI 39.2
--- NOTE | 2025-01-30 09:52 | HO.ANESPROP2 ---
HPI - Anesthesia Eval Consult details Narrative: 64yo M for Colonoscopy Follows [facility] cardiology for aflutter (eliquis) [facility] Active Problems Active Problems: All Active Problems Hypoxemia (Acute) Smoker (Acute) COPD (chronic obstructive pulmonary disease) (Acute) DIANNA (obstructive sleep apnea) (Acute) Obesity (BMI 30-39.9) (Acute) Past Medical History Medical History (Updated 01/27/25 @ 13:07 by Soco Kimble RN) Atrial flutter Hypoxemia Smoker COPD (chronic obstructive pulmonary disease) DIANNA (obstructive sleep apnea) Obesity (BMI 30-39.9) Surgical History Surgical History (Updated 01/27/25 @ 13:08 by Soco Kimble RN) Hx of hernia repair H/O colonoscopy Social History Social History (Updated 01/27/25 @ 13:08 by Soco Kimble RN) Household Members: Spouse Patient Tobacco Use Status: Former Tobacco user Tobacco use type: Cigarette Cigarette Packs Per Day: 0.5 Cigarettes Per Day: 5 Years Smoked: 35 Meds Allergies Allergy/AdvReac Type Severity Reaction Status Date / Time No Known Allergies Allergy Unverified 10/05/24 11:43 Home Medications ?Medication ?Instructions ?Recorded ?Confirmed ?Last Taken ?Type apixaban 5 mg tablet (Eliquis) 5 mg PO BID 04/10/22 01/27/25 Unknown History fluticasone fur. 200 mcg-umeclid 1 ea PO DAILY 04/10/22 01/27/25 Unknown History 62.5 mcg-vilant 25 mcg inhalat.powder (Trelegy Ellipta) albuterol sulfate 90 mcg/actuation 2 puff inhalation Q6H PRN 05/20/22 01/27/25 Unknown History aerosol inhaler Shortness Of Breath Or Wheezing diltiazem HCl 360 mg 360 mg PO DAILY 02/24/23 01/27/25 Unknown History capsule,extended release 24 hr metoprolol succinate 100 mg 200 mg PO DAILY 02/24/23 01/27/25 Unknown History tablet,extended release 24 hr hydroxyzine HCl 25 mg tablet 25 mg PO QID PRN Anxiety 05/18/24 01/27/25 Unknown History Exam Height,Weight and Vital Signs: Height 5 ft 10.5 in Weight 125.645 kg Assessment and Plan Assessment Anesthesia Assessment: Chart Reviewed
[2025-01-31 08:37] VITALS: BP 118/85; PULSE 137; RESP 16; TEMP 36.6; O2SAT 98; BMI 38.3
[2025-01-31] MEDS: Metoprolol Succinate ER 100 MG TAB.ER.24H PO (08:49)
[2025-01-31 08:50] VITALS: BP 118/85; PULSE 136
[2025-01-31] MEDS: dilTIAZem HCL CD 180 MG CAP.ER.24H 360 MG PO (08:50)
--- NOTE | 2025-01-31 11:47 | PC.NURSE ---
Pt in atrial flutter with a rate in the 130's. Pt disclosed he did not take his rate control medications. Consulted with Dr. Garcia who advised to administer patients regular doses of Diltiazem and Metoprolol in an attempt to get patient's HR to lower. After over 2 hours, pt's rate did not decrease. Dr. Garcia and Dr. Nieto at patient bedside explaining the risks of proceeding. 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 Discharged from preop.
== END ==
LOC: HO.SSS 07:45
PROVIDERS: PCP Family Medicine; Visit Provider Internal Medicine Gastroenterology
DX: Z12.11 Encounter for screening for malignant neoplasm of colon (principal); Z53.8 Procedure and treatment not carried out for other reasons; I48.92 Unspecified atrial flutter; Z79.01 Long term (current) use of anticoagulants; Z79.899 Other long term (current) drug therapy

== ENCOUNTER 2025-02-02 10:55 | Outpatient (AMB) | payer BC, SELFPAY ==
--- NOTE | 2025-02-02 11:22 | MHC.OFFVIS ---
Vital Signs 02/02/25 11:23 Height 5 ft 10.5 in Weight 272 lb 4.334 oz BMI 38.5 BP 122/70 Blood Pressure Location Lt brachial Position Sitting Pulse 122 H Pulse Source Pulse Oximeter Pulse Oximetry (%) 98 Oxygen Delivery Method Nasal Cannula Oxygen Flow Rate 2 Intake Visit Reasons: DIANNA/COPD Intake Note: pt is here for copd and dianna using oxygen at night on 2 liters and with exertion and some breaks Assistant Dean Required: No Allergies No Known Allergies Allergy (Unverified 02/02/25 11:53) Medication List - Last Reconciled 02/02/25 by Tanesha Funes MD apixaban (Eliquis) 5 mg PO BID cholecalciferol (vitamin D3) 50 mcg PO DAILY diltiazem HCl CD 360 mg PO DAILY tdmpazkstvb-esajdrool-buscfygk 200-62.5-25 mcg (Trelegy Ellipta) 1 ea PO DAILY folic acid 0.8 mg PO DAILY hydroxyzine HCl 25 mg PO QID PRN levalbuterol tartrate 45 mcg/actuation 2 puffs inhalation Q4-6H PRN 30 days metoprolol succinate ER 200 mg PO DAILY Do you need a note to return to daycare/school/sports/work: No HPI HPI DIANNA/COPD: Details: THIS 64 YEARS OLD GENTLEMAN, WHO IS MORBIDLY OBESE, AND HAS DIAGNOSIS OF OBSTRUCTIVE SLEEP APNEA FOR MANY YEARS, HAS NOT BEEN ABLE TO USE THE CPAP BUT DOES USE O2 2 L/MINUTE AT NIGHT. HE CLAIMS THAT HE SLEEPS VERY GOOD AT LEAST FOR 6-7 HOURS EVERY NIGHT. DURING THE DAYTIME HIS SHORTNESS OF BREATH ON EXERTION IS SAME USUAL. HE HAS HAD NO ACUTE EXACERBATION. USES TRELEGY ELLIPTA 1 INHALATION DAILY, AND HARDLY NEEDS TO USE THE RESCUE INHALER. HE DOES HAVE TENDENCY TO DEVELOP STASIS EDEMA OF THE LEGS, WHICH IS CONTROLLED WITH ELASTIC STOCKINGS AND ALSO HE TRIES TO RAISE HIS FEET WHEN HE IS RESTING IN THE AFTERNOON. OVERALL HIS RESPIRATORY STATUS IS STABLE. 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) ENT Reports no additional complaints Card Reports rapid heart rate and Reports dyspnea on exertion Resp Reports as per HPI and Reports dyspnea on exertion GI Reports no additional complaints Reports no additional complaints Musc Reports no additional complaints Skin/Breast Reports system reviewed and no additional complaints, except as documented Neuro Reports no additional complaints and Reports loss of vision (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) Psych Reports no additional complaints Josh/Lymph Reports no additional complaints Physical Exam Vital Signs: Last Vital Signs Pulse 122 H 02/02/25 11:23 BP 122/70 02/02/25 11:23 Pulse Ox 98 02/02/25 11:23 Oxygen Delivery Method Nasal Cannula 02/02/25 11:23 Oxygen Flow Rate 2 02/02/25 11:23 BMI result Body Mass Index 38.5 Const General: healthy appearing (Except for being overweight), comfortable, no acute distress, alert and awake Orientation/consciousness: patient oriented x3 HEENT Head: Yes normal to inspection General nose exam: No nasal polyps present and No nasal discharge present Face and sinus: Yes sinuses nontender Mouth: oropharynx abnormals (Oropharynx is crowded, Mallampati class 4) Throat: Yes posterior oropharynx normal Eyes General: appearance normal, both eyes and all related structures Alignment and Position: other Neck Neck: Yes normal visual inspection, Yes no lymphadenopathy, Yes trachea midline, Yes no JVD and Yes other (Neck circumference 16-1/2 inch) Thyroid: Thyroid normal Chest Chest palpation & inspection: normal inspection of the chest and no tenderness Resp Other: Percussion note resonant,, Breath sounds are distant with prolonged. Expiratory phase No wheezes or crepitations are heard today. Cardio Palpation: normal PMI Rate: tachycardic Rhythm: regular rhythm Heart sounds: no gallops and no murmurs Peripheral pulses: Peripheral pulses 2+ throughout GI Palpation (GI): Soft to palpation, nontender, No hepatosplenomegaly present and no masses Auscultation: normal bowel sounds Back/Spine/Pelvis Thoracic/Lumbar Spine: thoracic and lumbar spine normal to inspection and thoraco-lumbar ROM limited Skin General skin exam: no rashes or lesions noted Neuro General: patient oriented x3 and no focal motor deficits Cranial nerves: Yes CN's II-XII intact bilaterally Extrem General: Yes normal to inspection, Yes no calf tenderness and Yes edema (only trace of pitting edema, controlled with compression stockings.) Psych Appearance: grossly normal and well kempt Speech and movement: Normal speech and movement present Assessment & Plan Assessment & Plan (1) Obesity (BMI 30-39.9): Comment: PATIENT IS MODERATELY OBESE, NECK SIZE 16-1/2 INCH MALLAMPATI CLASS 4. HE DOES HAVE SIGNIFICANT RISK FACTOR FOR OBSTRUCTIVE SLEEP APNEA. Code(s): E66.9 - Obesity, unspecified Category: Medical Plan: FOR NOCTURNAL HYPOXEMIA HE USES O2 2 L/MINUTE. HE DOES NOT WANT TO USE CPAP AT NIGHT. JUST WITH THE USE OF OXYGEN HE IS SLEEPING WELL. (2) COPD (chronic obstructive pulmonary disease): Comment: PULMONARY FUNCTION TEST IN 2017 CONFIRMED THAT HE HAD SEVERE OBSTRUCTIVE AIRWAY DISORDER. LAST PULMONARY FUNCTION TEST AT OUR LAB ON 05/14/22 ALSO CONFIRMED THAT HE HAS SEVERE OBSTRUCTIVE AIRWAY DISORDER. SPIROMETRY ON 11/18/2023 AGAIN SHOWED SEVERE OBSTRUCTIVE AIRWAY DISORDER, SLIGHTLY WORSE THAN BEFORE. THIS WAS CONSIDERED TO BE DUE TO CONTINUED SMOKING. NOW THAT HE IS NOT SMOKING HIS LUNG SEEM TO BE MORE CLEAR. Code(s): J44.9 - Chronic obstructive pulmonary disease, unspecified Category: Medical Plan: USE TRELEGY INHALER 1 INHALATION DAILY ALBUTEROL HFA 2 PUFFS Q 6 HOURS P.R.N.. * PATIENT'S WAS QUESTIONING IF HE CAN GET TO HANDICAP [place] FOR THE CAR. I EXPLAINED THAT WE WOULD NEED TO DO A SPIROMETRY AND DETERMINE THE FEV1 VALUE. HE SAY IS HE WOULD LIKE TO HAVE IT DONE ON THE NEXT TIME . (3) DIANNA (obstructive sleep apnea): Comment: HE HAS LONGSTANDING HISTORY OF OBSTRUCTIVE SLEEP APNEA, HAS NOT BEEN ABLE TO USE THE CPAP. HE CLAIMS THAT HE SLEEPS FAIRLY WELL. HE DOES HAVE NOCTURNAL HYPOXEMIA WHICH IS BEING TREATED WITH O2 SUPPLEMENTATION. Code(s): G47.33 - Obstructive sleep apnea (adult) (pediatric) Category: Medical Plan: CONTINUE TO USE O2 2 L/MINUTE AT NIGHT. ENCOURAGED TO LOSE WEIGHT. TRY TO SLEEP IN LATERAL POSITION. (4) Smoker: Comment: Long-time smoker. Goes back to smoking off and on, has tried everything but did not work . He had stopped smoking for a while but then goes back currently smoking about 5-6 cigarettes a day. Code(s): F17.200 - Nicotine dependence, unspecified, uncomplicated Category: Social Hx Plan: Again discussed about quitting smoking. He is going to try his past. (5) Hypoxemia: Comment: BECAUSE OF HIS ADVANCED CHRONIC OBSTRUCTIVE PULMONARY DISEASE, AND ASSOCIATED ATRIAL FIBRILLATION WITH MILD CONGESTIVE HEART FAILURE, I IN ADDITION TO NOCTURNAL HYPOXEMIA HE WAS ALSO FOUND TO HAVE EXERCISE INDUCED HYPOXEMIA, AND STARTED ON O2 WITH PORTABLE UNIT. HE DOES USE O2 DURING THE DAYTIME FOR ANY PHYSICAL EXERTION, ESPECIALLY BEFORE GOING FOR SHOWERS. Code(s): R09.02 - Hypoxemia Category: Medical Plan: Advised to continue using O2 2 L/minute at night and also use with the portable unit p.r.n. during the daytime Coding Level of Care Code Est Pt Level 4 (84749) Diagnoses Obesity (BMI 30-39.9) E66.9 COPD (chronic obstructive pulmonary disease) J44.9 DIANNA (obstructive sleep apnea) G47.33 Smoker F17.200 Hypoxemia R09.02
[2025-02-02 11:23] VITALS: BP 122/70; PULSE 122; O2SAT 98; BMI 38.5
--- OUTSIDE RECORDS SUMMARY | 2025-02-02 12:06 | XMS_ITS ---
Author Organization [facility] Address [address] [place] [address] Care Team Providers Care Solid Fiber Paster Operator Name Role Phone Montana CHUN, Ryan Primary Care Provider Reese Singer Jr REASON FOR VISIT SCREENING COLON Encounters Encounter Location Date Provider Diagnosis [facility] [place] [place] Outpatient [address] [facility] [place] [id number] 01/31/2025 Reese Nieto Jr Plan Of Treatment No Information Progress Notes * MELIDA HICKMANDOB:[birth year] (64 yo M)Acc No.[id number]:01/31/2025 COLON WITH MAC Patient:?MELIDA HICKMAN Provider:?Reese Nieto MD :1960???Age:64 Y???Sex:Male Ming e:01/31/2025 Address: [address] [id number] Pcp:Ryan Boyle MD Subjective: * Chief Complaints: * ???1. SCREENING COLON. * Medical History:? Objective: * Vitals:? Assessment: Plan: * Treatment: * * The named appointment provid er may or may not be the originator of this progress note, and it is not deemed complete until electronically signed by the appointment provider. Sign off status: Pending * Provider:?Reese Nieto MD Date:?0 01/31/2025 Generated for Printi ng/Faxing/eTransmitting on:?02/02/2025 12:06 PM EDT
--- OUTSIDE RECORDS SUMMARY | 2025-02-02 12:06 | XMS_ITS | Patient Health Record ---
Author Organization [facility] Address [address] [place] [address] Care Team Providers Care Gridcap Machine Operator Name Role Phone Ingrid MCCAULEY, Tanya Primary Care Provider Jose Guzmán Unavailable [phone] Allergies No Known Allergies Reason For Referral [...] Treatment Pending Test Test Name Order Date [id number]-Lfohoobe Plate 12/07/2020 Insurance Providers Payer Name Payer Address Payer Phone Subscriber Number Group Number Insured Name Patient Relationship to Insured Coverage Start Date Coverage End Date [facility] [address] [place] [address] [phone] [id number] Eber Jordan Self - patient is the insured Medical (General) History Medical History History ICD Code COPD Anxiety disorder Diverticulosis Inguinal Hernia Surgical History Surgery Date(Month/Year) hernia repair mars inguinal 05/04/2020 prostate biopsy Lipoma resection from back
--- OUTSIDE RECORDS SUMMARY | 2025-02-02 12:06 | XMS_ITS ---
Author Organization [facility] Address [address] [place] [address] Care Team Providers Care Accountant Machine Processing Name Role Phone [place] CHUN, Ryan Primary Care Provider Reese Singer Jr Encounters Encounter Location Date Provider Diagnosis [facility] [address] [place] [address] 01/30/2025 Reese Nieto Jr Plan Of Treatment No Information Progress Notes * MELIDA HICKMANDOB:[birth year] (64 yo M)Acc No.[id number]:01/30/2025 Patient:?MELIDA HICKMAN :1960???Age:64 Y???Sex:Male Address:[address] [place], [address] * true * Date:? Generated for Printi danielle/Emile/eTransmitting on:?02/02/2025 12:06 PM EDT
--- OUTSIDE RECORDS SUMMARY | 2025-02-02 12:06 | XMS_ITS | Patient Health Record ---
Author Organization [facility] Address [address] [place] [address] Care Team Providers Care Factory Engineer Name Role Phone Ryan Boyle MD Primary Care Provider Reese Singer Jr Unavailable [phone] Allergies No Known Allergies Reason For Referral No Information Medications Medication SIG (Take, Route, Frequency, Duration) Notes Start Date End Date Status Vitamin D-3 25 MCG (1000 UT) 1 capsule Orally Once a day Active Vitamin B-12 100 MCG as directed Orally Active hydrOXYzine HCl 25 MG Oral for 90 Days as needed Active Eliquis 5 MG TAKE 1 TABLET BY GRUPO TH TWICE A DAY Oral for 30 Days Active Trelegy Ellipta 200-62.5-25 MCG/ACT Inhalation for 90 Days Active Folic Acid 400 MCG 1 tablet Orally Once a day Active Metoprolol Succinate ER 200 MG TAKE 1 TABLET BY MOUTH EVERY DAY Oral for 90 Days Active dilTIAZem HCl ER Coated Beads 360 MG Oral for 90 Days Active Trelegy Ellipta 200-62.5-25 MCG/ACT INHALE 1 PUFF BY MOUTH EVERY DAY Inhalation for 90 Days Active Immunizations Vaccine Route Administration Date Status Comme nts Influenza Unknown 09/21/2018 Administered Influenza Unknown 07/05/2024 Administered Social History Tobacco Use: Social History Observation Description Date Details (start date - stop date) Former Smoker NA - NA Tobacco Control (Standard) Question Answer Notes Tobacco use: Former smoker AUDIT-C (Standard) Question Answer Notes Did you have a drink containing alcohol in the p ast year? No Points 0 Interpretation Negative Problems Problem Type SNOMED Code ICD Code Onset Dates Problem Status W/U Status Risk Notes Problem Colon cancer screening (314321411) Colon cancer screening (V76.51) Active confirmed Problem 927227036 Colon cancer screening (Z12.11) Active confirmed Problem Long-term current use of anticoagulant (688970289) Anticoagulant long-term use (Z79.01) Active confirmed Vital Signs Temperature 98.6 degrees Fahrenheit 01/16/2025 Blood pressure diastolic 01 mm Hg 01/16/2025 Height 70.5 in 01/16/2025 Blood pressure systolic 001 mm Hg 01/16/2025 Weight 277 lbs 01/16/2025 BMI 39.18 kg/m2 01/16/2025 Encounters Encounter Location Date Provider Diagnosis [facility] [address] [place] [phone] 01/16/2025 Reese Nieto Jr Colon cancer screening Z12.11 and Anticoagulant long-term use Z79.01 [facility] [address] [place] [phone] 01/31/2025 Reese Nieto Jr [facility] [address] [place] [phone] 01/16/2025 Reese Nieto Jr [facility] [address] [place] [phone] 01/17/2025 Reese Nieto Jr [facility] [address] [place] [phone] 01/17/2025 Reese Nieto Jr [facility] [address] [place] [phone] 01/30/2025 Reese Nieto Jr Assessments Encounter Date Diagnosis (ICD Code) Assessment Notes Treatment Notes Treatment Clinical Notes Section Notes 01/16/2025 Colon cancer screening (ICD-10 - Z12.11) We discussed colonoscopy today. We discussed risks and benefits of the procedure today. He understands these and agrees to proceed. This will be scheduled at his convenience. He is advised to stop anticoagulates 3 days before the procedure unless otherwise instructed by his providers 01/16/2025 Anticoagulant long-term use (ICD-10 - Z79.01) We discussed colonoscopy today. We discussed risks and benefits of the procedure today. He understands these and agrees to proceed. This will be scheduled at his convenience. He is advised to stop anticoagulates 3 days before the procedure unless otherwise instructed by his providers Plan Of Treatment Future Test Test Name Order Date COLONOSCOPY 08/04/2013 COLONOSCOPY 01/19/2019 COLONOSCOPY 01/16/2025 Insurance Providers Payer Name Payer Address Payer Phone Subscriber Number Group Number Insured Name Patient Relationship to Insured Coverage Start Date Coverage End Date [facility] [address] [place], [place] [id number] MELIDA HICKMAN Self - patient is the insured Medical (General) History Medical History History ICD Code COPD Anxiety Atrial fibrillation/flutter Colonoscopy 2019, 2 tubular adenomas, 5- year follow-up Surgical History Surgery Date(Month/Year) hernia repair
--- OUTSIDE RECORDS SUMMARY | 2025-02-02 12:07 | XMS_ITS ---
Author Organization [facility] Address [address] [place] [address] Care Team Providers Care Die Cast Supervisor Name Role Phone Ryan Boyle MD Primary Care Provider Reese Singer Jr [phone] REASON FOR VISIT r/s Encounters Encounter Location Date Provider Diagnosis [facility] [address] [place] [address] 01/31/2025 Reese Nieto Jr Plan Of Treatment No Information Progress Notes * MELIDA HICKMANDOB:[birth year] (64 yo M)Acc No.[id number]:01/31/2025 Patient:?MELIDA HICKMAN :1960???Age:64 Y???Sex:Male Address:[address] [place], [address] * * Date:?
== END 2025-02-02 11:49 | disposition home or self-care (01) ==
LOC: HO.HPS 10:56
PROVIDERS: PCP Family Medicine; Visit Provider Internal Medicine
DX: E66.9 Obesity, unspecified (principal); J44.9 Chronic obstructive pulmonary disease, unspecified; G47.33 Obstructive sleep apnea (adult) (pediatric); F17.200 Nicotine dependence, unspecified, uncomplicated; R09.02 Hypoxemia
CPT/HCPCS: 99214

== ENCOUNTER 2025-05-30 11:19 | Outpatient (AMB) | payer BC, SELFPAY ==
--- OUTSIDE RECORDS SUMMARY | 2025-01-31 05:10 | XMS_ITS ---
Author Organization [facility] Address [address] [place] [id number] Care Team Providers Care Scale Tester Name Role Phone [place] CHUN, Ryan Primary Care Provider Reese Singer Jr REASON FOR VISIT SCREENING COLON Encounters Encounter Location Date Provider Diagnosis [facility] [address] [place] [id number] 01/31/2025 Reese Nieto Jr Plan Of Treatment No Information Progress Notes * MELIDA HICKMANDOB:[birth year] (64 yo M)Acc No.[id number]:01/31/2025 COLON WITH MAC Patient: Ponce LUNAMELIDA HASSAN Provider: Ponce Nieto MD :1960 A ge:64 Y S ex:Male Date:01/31/2025 Address:[address] [place] [address] [id number] Pcp:Ryan Boyle MD Subjective: * Chief Complaints: * 1 . SCREENING COLON. * Medical History: Objective: * Vitals: Assessment: Plan: * Treatment: * * The named appointment provid er may or may not be the originator of this progress note, and it is not deemed complete until electronically signed by the appointment provider. Sign off status: Pending * Provider: Ponce Nieto MD Date: 01/31/2025 Generated for Josei ng/Faakuag/eTransmitting on: 05/30/2025 01:44 PM EDT
[2025-05-30 11:32] VITALS: BP 117/67; PULSE 100; O2SAT 95; BMI 37.1
--- NOTE | 2025-05-30 11:32 | MHC.OFFVIS ---
Vital Signs 05/30/25 11:32 Height 5 ft 10.5 in Weight 262 lb BMI 37.1 BP 117/67 Blood Pressure Location Lt brachial Position Sitting Pulse 100 Pulse Source Pulse Oximeter Pulse Oximetry (%) 95 Oxygen Delivery Method Nasal Cannula Oxygen Flow Rate 2 Intake Visit Reasons: DIANNA/COPD Intake Note: Patient is here to follow up on DIANNA/COPD, no complaints Allergies No Known Allergies Allergy (Verified 05/30/25 11:51) Medication List - Last Reconciled 05/30/25 by Tanesha Funes MD apixaban (Eliquis) 5 mg PO BID cholecalciferol (vitamin D3) 50 mcg PO DAILY diltiazem HCl CD 360 mg PO DAILY oekbbjhflsu-jomoooeki-fvgnjkwn 200-62.5-25 mcg (Trelegy Ellipta) 1 ea PO DAILY folic acid 0.8 mg PO DAILY hydroxyzine HCl 25 mg PO QID PRN levalbuterol tartrate 45 mcg/actuation 2 puffs inhalation Q4-6H PRN 30 days metoprolol succinate ER 200 mg PO DAILY Do you need a note to return to daycare/school/sports/work: No HPI HPI DIANNA/COPD: Details: This 64 years old gentleman with gross obesity, especially abdominal, is known case of obstructive sleep apnea but was not able to use CPAP. He does have nocturnal hypoxemia as part of his COPD and obstructive, sleep apnea and uses O2 2 L/minute at night. Also has portable O2 which he uses during the daytime when doing any physical work or going outdoors. His COPD is quite advanced and it is well controlled with use of Trelegy Ellipta 1 inhalation daily which he uses at night, and levalbuterol HFA which he has not been using. He was afraid to use levalbuterol not knowing that he can use p.r.n. even when he is using Trelegy Ellipta. Overall he is doing well and is stable. I brought to his attention that he has lost 10 lb since his last visit in January, and he is quite thrilled about that. He say is he has eliminated eating extra up portions of after a lie dinner. 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) ENT Reports no additional complaints Card Reports rapid heart rate and Reports dyspnea on exertion Resp Reports as per HPI and Reports dyspnea on exertion GI Reports no additional complaints Reports no additional complaints Musc Reports no additional complaints Skin/Breast Reports system reviewed and no additional complaints, except as documented Neuro Reports no additional complaints and Reports loss of vision (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) Psych Reports no additional complaints Josh/Lymph Reports no additional complaints Physical Exam Vital Signs: Last Vital Signs Pulse 100 05/30/25 11:32 BP 117/67 05/30/25 11:32 Pulse Ox 95 05/30/25 11:32 Oxygen Delivery Method Nasal Cannula 05/30/25 11:32 Oxygen Flow Rate 2 05/30/25 11:32 BMI result Body Mass Index 37.1 Const General: healthy appearing (Except for being overweight), comfortable, no acute distress, alert and awake Orientation/consciousness: patient oriented x3 HEENT Head: Yes normal to inspection General nose exam: No nasal polyps present and No nasal discharge present Face and sinus: Yes sinuses nontender Mouth: oropharynx abnormals (Oropharynx is crowded, Mallampati class 4) Throat: Yes posterior oropharynx normal Eyes General: appearance normal, both eyes and all related structures Alignment and Position: other Neck Neck: Yes normal visual inspection, Yes no lymphadenopathy, Yes trachea midline, Yes no JVD and Yes other (Neck circumference 16-1/2 inch) Thyroid: Thyroid normal Chest Chest palpation & inspection: normal inspection of the chest and no tenderness Resp Other: Percussion note resonant,, Breath sounds are distant with prolonged. Expiratory phase No wheezes or crepitations are heard today. Cardio Palpation: normal PMI Rate: tachycardic Rhythm: regular rhythm Heart sounds: no gallops and no murmurs Peripheral pulses: Peripheral pulses 2+ throughout GI Palpation (GI): Soft to palpation, nontender, No hepatosplenomegaly present and no masses Auscultation: normal bowel sounds Back/Spine/Pelvis Thoracic/Lumbar Spine: thoracic and lumbar spine normal to inspection and thoraco-lumbar ROM limited Skin General skin exam: no rashes or lesions noted Neuro General: patient oriented x3 and no focal motor deficits Cranial nerves: Yes CN's II-XII intact bilaterally Extrem General: Yes normal to inspection, Yes no calf tenderness and Yes edema (only trace of pitting edema, controlled with compression stockings.) Psych Appearance: grossly normal and well kempt Speech and movement: Normal speech and movement present Assessment & Plan Assessment & Plan (1) COPD (chronic obstructive pulmonary disease): Comment: PULMONARY FUNCTION TEST IN 2017 CONFIRMED THAT HE HAD SEVERE OBSTRUCTIVE AIRWAY DISORDER. LAST PULMONARY FUNCTION TEST AT OUR LAB ON 05/14/22 ALSO CONFIRMED THAT HE HAS SEVERE OBSTRUCTIVE AIRWAY DISORDER. SPIROMETRY ON 11/18/2023 AGAIN SHOWED SEVERE OBSTRUCTIVE AIRWAY DISORDER, SLIGHTLY WORSE THAN BEFORE. THIS WAS CONSIDERED TO BE DUE TO CONTINUED SMOKING. NOW THAT HE IS NOT SMOKING HIS LUNGS SEEM TO BE MORE CLEAR. Code(s): J44.9 - Chronic obstructive pulmonary disease, unspecified Category: Medical Plan: Continue using TRELEGY ELLIPTA 1 inhalation daily. OK TO USE LEVALBUTEROL HFA 1 PUFF Q 6 HOURS P.R.N. (2) Hypoxemia: Comment: HE HAS NOCTURNAL HYPOXEMIA WELL EXERCISE INDUCED HYPOXEMIA. HE DOES USE O2 DURING THE DAYTIME FOR ANY PHYSICAL EXERTION, ESPECIALLY BEFORE GOING FOR SHOWERS, OR GOING OUTDOORS ALSO NEEDS TO USE O2 2 L/MINUTE AT NIGHT. Code(s): R09.02 - Hypoxemia Category: Medical Plan: CONTINUE TO USE O2 2 L/MINUTE AT NIGHT. AND USE O2 2 L/MINUTE WITH THE PORTABLE UNIT, DURING THE DAY FOR ANY PHYSICAL ACTIVITY AND FOR GOING OUTDOORS (3) Smoker: Comment: Long-time smoker. Goes back to smoking off and on, has tried everything but did not work . He had stopped smoking for a while but then goes back currently smoking about 5-6 cigarettes a day. Code(s): F17.200 - Nicotine dependence, unspecified, uncomplicated Category: Social Hx Plan: AGAIN COUNSELED THAT HE SHOULD TRY TO QUIT SMOKING COMPLETELY. (4) Obesity (BMI 30-39.9): Comment: PATIENT IS MODERATELY OBESE, NECK SIZE 16-1/2 INCH MALLAMPATI CLASS 4. HE DOES HAVE SIGNIFICANT RISK FACTOR FOR OBSTRUCTIVE SLEEP APNEA. THIS TIME HE HAS LOST 10 LB OF WEIGHT, . BY WATCHING HIS DIET Code(s): E66.9 - Obesity, unspecified Category: Medical Plan: COMMENDED FOR LOSING SOME WEIGHT AND ADVISED TO CONTINUE CUTTING DOWN THE INTAKE OF CARBOHYDRATES, AND LOSE MORE WEIGHT . (5) DIANNA (obstructive sleep apnea): Comment: HE HAS LONGSTANDING HISTORY OF OBSTRUCTIVE SLEEP APNEA, HAS NOT BEEN ABLE TO USE THE CPAP. HE CLAIMS THAT HE SLEEPS FAIRLY WELL. HE DOES HAVE NOCTURNAL HYPOXEMIA WHICH IS BEING TREATED WITH O2 SUPPLEMENTATION. Code(s): G47.33 - Obstructive sleep apnea (adult) (pediatric) Category: Medical Plan: ENCOURAGED TO LOSE MORE WEIGHT, . ALWAYS SLEEP IN LATERAL POSITION AND USE O2 2 L/MINUTE AT NIGHT. Coding Level of Care Code Est Pt Level 4 (73476) Diagnoses COPD (chronic obstructive pulmonary disease) J44.9 Hypoxemia R09.02 Smoker F17.200 Obesity (BMI 30-39.9) E66.9 DIANNA (obstructive sleep apnea) G47.33
--- OUTSIDE RECORDS SUMMARY | 2025-05-30 13:45 | XMS_ITS | Encounter Summary ---
Author Organization [facility] Address [address] [place] [address] [place] [address] Phone Care Team Providers Care Patient Services Rep Name Role Phone [place]anya gilbert Suman MCCAULEY Primary Care Provider [phone] Reese Nieto MD Unavailable [phone] Ryan Boyle MD Primary Care Provider [phone] Encounter Details Date Type Department Care Team (Late st Contact Info) Description 05/04/2020 Procedure Pass OR Admitting Dept - Virtual Department [address] [place] [address] Social History Tobacco Use Types Packs/Day Years Used Date Smoking Tobacco: Every Day Cigarettes 0.5 45.7 Started: 10/04/1979 Smokeless Tobacco: Never Alcohol Use Standard Drinks/Week Comments Yes 0 (1 standard drink = 0.6 oz pur e alcohol) 1-2 x month Sex and Gender Information Value Date Recorded Sex Assigned at Not on file Legal Sex Male 9:46 PM EDT Gender Identity Not on file Sexual Orientation Not on file documented as of this encounter Plan of Treatment Upcoming Encounters Date Type Department Care Team (Late Contact Info) Description 09/05/2025 11:00 AM EST [facility] [address] [place] [address] Ryan Boyle MD [address] [facility] [place] [address] [email or web address] documented as of this encounter Visit Diagnoses Not on filedocumented in this encounter Additional Health Concerns Assessment Noted Time PHQ-2 Depression Total Score: 0 11/18/19 20 1:23 PM EST documented as of this encounter Care Teams Patient Services Rep Relationship Specialty Start Date End Date Tanya Quintero NP [email or web address] PCP - General Family Medicine 09/23/19 11/23/23 Ryan Boyle MD [address] [place] [address], [address] [place] [address] [email or web address] PCP - General Family Medicine 11/24/23 Reese Nieto MD [address] [place] [address] [place] [phone] Internal Medicine 04/05/20 documented as of this encounter Additional Source Comments The information contained in this document represents components of the legal health record. It is not the complete legal health record.[facility]
--- OUTSIDE RECORDS SUMMARY | 2025-05-30 13:45 | XMS_ITS | Encounter Summary ---
Author Organization [facility] Address [address] [facility] [address] [place] [address] Phone Care Team Providers Care Wrapper Off Name Role Phone Morgan Holm MD Unavailable [phone] Tanya Quintero ORTHOPEDICS PEDIATRIC PHYSICIAN Primary Care Provider [phone] Tanya Quintero ORTHOPEDICS PEDIATRIC PHYSICIAN Primary Care Provider [phone] Reese Nieto MD Unavailable [phone] Ryan Boyle MD Primary Care Provider [phone] Encounter Details Date Type Department Care Team (Latest Contact Info) Description 01/19/2019 Transcribe Orders [facility] Laboratory [address] [place] [address] Isael Bhat MD [address] [facility] [address] [place] [address] [email or web address] Elevated prostate specific antigen (PSA) (Primary Dx) Social History Tobacco Use Types Packs/Day Years Used Date Smoking Tobacco: Every Day Cigarettes 0.5 45.7 Started: 10/04/1979 Smokeless Tobacco: Never Alcohol Use Standard Drinks/Week Comments Yes 2 (1 standard drink = 0.6 oz pur e alcohol) rare Sex and Gender Information Value Date Recorded Sex Assigned at Not on file Legal Sex Male 9:46 PM EDT Gender Identity Not on file Sexual Orientation Not on file documented as of this encounter Plan of Treatment Upcoming Encounters Date Type Department Care Team (Late Contact Info) Description 09/05/2025 11:00 AM EST Office Visit [address] [address] Ryan Boyle MD [address] [place] [address], [address] [place] [address] [email or web address] documented as of this encounter Results * (ABNORMAL) PSA (screening) (01/19/2019 1:02 PM EDT) PSA 7.04(H) 0 - 4.00 ng/mL [facility] Blood 01/19/2019 1:02 PM EDT 01/19/2019 1:08 PM EDT us Isael Bhat MD LAB BLOOD ORDERABLES Katie swan Result Performing Organization Address City/State/[facility] Co de Phone Number [facility] [address] [place] [address] documented in this encounter Visit Diagnoses Diagnosis Elevated prostate specific antigen (PSA)- Primary documented in this encounter Additional Health Concerns Assessment Noted Time PHQ-2 Depression Total Score: 0 10/22/19 19 9:51 AM EST documented as of this encounter Care Teams Wrapper Off Relationship Specialty Start Date End Date Tanya Quintero NP [address] [place] [address] [email or web address] PCP - General Family Medicine 10/04/18 09/22/19 Tanya Quintero NP [address] [place] [address] PCP - General Family Medicine 09/23/19 11/23/23 Ryan Boyle MD [address] [place] [address], [address] [place] [address] [email or web address] PCP - General Family Medicine 11/24/23 Morgan Holm MD [address] [place] [address] [email or web address] Historical LMR Provider 07/07/17 04/04/20 Reese Nieto MD [address] [place] [phone] Internal Medicine 04/05/20 documented as of this encounter Additional Source Comments The information contained in this document represents components of the legal health record. It is not the complete legal health record.[facility]
--- OUTSIDE RECORDS SUMMARY | 2025-05-30 13:45 | XMS_ITS | Encounter Summary ---
Author Organization [facility] Address [address] [facility] [address] [place] [address] Phone Care Team Providers Care Heavy Duty Mechanic Farm Equipment Name Role Phone [place] City[place]anya ferrell Suman MCCAULEY Primary Care Provider Reese Nieto MD Unavailable Ryan Boyle MD Primary Care Provider [phone] Encounter Details Date Type Department Care Team (Late st Contact Info) Description 04/06/2020 Procedure Pass [facility], Ct Scan - [address] [address] Social History Tobacco Use Types Packs/Day Years [...] Encounters Date Type Department Care Team (Late st Contact Info) Description 09/05/2025 11:00 AM EST Office Visit [facility] Medicine [address] [place] [address] Ryan Boyle MD [address] [facility] [place] [address] [email or web address] documented as of this encounter Visit Diagnoses Not on filedocumented in this encounter Additional Health Concerns Assessment Noted Time PHQ-2 Depression Total Score: 0 11/18/19 20 1:23 PM EST documented as of this encounter Care Teams Heavy Duty Mechanic Farm Equipment Relationship Specialty Start Date End Date Tanya Quintero NP [email or web address] PCP - General Family Medicine 09/23/19 11/23/23 Ryan Boyle MD [address] [place] [address], [address] [place] [address] [email or web address] PCP - General Family Medicine 11/24/23 Reese Nieto MD [address] [place] [address] [place] [phone] Internal Medicine 04/05/20 documented as of this encounter Additional Source Comments The information contained in this document represents components of the legal health record. It is not the complete legal health record.[facility]
--- OUTSIDE RECORDS SUMMARY | 2025-05-30 13:45 | XMS_ITS | Patient Health Record ---
Author Organization [facility] Address [address] [facility] [place] [address] Care Team Providers Care Special Warfare Boat Operator Name Role Phone Ingrid MCCAULEY, Tanya Primary Care Provider Jose Guzmán Unavailable [phone] Allergies No Known Allergies Reason For Referral No Information Medications Medication SIG (Take, Route, Frequency, Duration) Notes Start Date End Date Status Cholecalciferol 25 MCG (1000 UT) 1 capsule Orally Once a day; Duration: 30 day(s) Active Advair HFA Active Spiriva Respimat 2.5 MCG/ACT 2 puffs Inh alation Once a day Active Docusate Sodium 100 MG 1 capsule as need ed Orally Once a day; Duration: 30 day(s) Active Social History Tobacco Use: [...] Treatment Pending Test Test Name Order Date [id number] Plate 12/07/2020 Insurance Providers Payer Name Payer Address Payer Phone Subscriber Number Group Number Insured Name Patient Relationship to Insured Coverage Start Date Coverage End Date [facility] [address] [place] [address] [phone] [id number] Eber Jordan Self - patient is the insured Medical (General) History Medical History History ICD Code COPD Anxiety disorder Diverticulosis Inguinal Hernia Surgical History Surgery Date(Month/Year) hernia repair mars inguinal 05/04/2020 prostate biopsy Lipoma resection from back
--- OUTSIDE RECORDS SUMMARY | 2025-05-30 13:45 | XMS_ITS | Encounter Summary ---
Author Organization [facility] Address [address] [place] [address] Phone Care Team Providers Care Network Firewall Engineer Name Role Phone Tanya Quintero NP Primary Care Provider [phone] Reese Nieto MD Unavailable Ryan Boyle MD Primary Care Provider [phone] Encounter Details Date Type Department Care Team (Late st Contact Info) Description 03/12/2022 Procedure Pass [facility], Ct Scan - [address] [address] Social History Tobacco Use Types Packs/Day Years Used Date Smoking Tobacco: Every Day Cigarettes 0.5 45.7 Started: 10/04/1979 Smokeless Tobacco: Never Alcohol Use Standard Drinks/Week Comments Yes 0 (1 standard drink = 0.6 oz pur e alcohol) 1 drink a month, beer or wine Child or Family Care Answer Date Record ed Do you have problems with on e of the following making it difficult for you to work, study, or receive health care? No 03/11/2022 Education Answer Date Recorded Are you interested in help w ith more adult education (for example, completing high school, GED, job training, learning the Somali language, technical skills, or developing parenting skills)? No 03/11/2022 Food Answer Date Recorded Within the past 6 months we worried whether our food would run out before we got money to buy more. Never True 03/11/2022 Within the past 6 months the food we bought just didn't last and we didn't have enough money to get more. Never True Residential Stability Answer Date Recor ded Family situation today data Not on file 02/20 How many times have you move d in the past 12 months? Zero (I did not move) 03/11/2022 06 Are you worried that in t he next 2 months, you may not have your own housing to live in? No 03/11/2022 Paying for Meds Answer Date Recorded Do you have trouble paying for medicines? No 03/11/2022 Paying Utility Bills Answer Date Record ed Do you have trouble paying your heating or elect ricity bill? No 03/11/2022 Transportation Answer Date Recorded Has the lack of transportati on kept you from medical appointments or from getting medications? No 03/11/2022 Unemployment Answer Date Recorded Are you currently unemployed or working on a part-time or temporary basis, and looking for work? No 03/11/2022 Sex and Gender Information Value Date Recorded Sex Assigned at Not on file Legal Sex Male 9:46 PM EDT Gender Identity Not on file Sexual Orientation Not on file documented as of this encounter Plan of Treatment Upcoming Encounters Date Type Department Care Team (Late st Contact Info) Description 09/05/2025 11:00 AM EST Office Visit [facility] [address] [place] [address] [place] [address] Ryan Boyle MD [address] [place] [address], [address] [place] [address] documented as of this encounter Visit Diagnoses Not on filedocumented in this encounter Additional Health Concerns Assessment Noted Time PHQ-2 Depression Total Score: 0 03/11/20 8:01 PM EDT documented as of this encounter Care Teams Network Firewall Engineer Relationship Specialty Start Date End Date Tanya Quintero NP PCP - General Family Medicine 09/23/19 11/23/23 Ryan Boyle MD [address] [place] [address], [address] [place] [address] [email or web address] PCP - General Family Medicine 11/24/23 Reese Nieto MD [address] [place] [address] [place] [phone] Internal Medicine 04/05/20 documented as of this encounter Additional Source Comments The information contained in this document represents components of the legal health record. It is not the complete legal health record.[facility]
--- OUTSIDE RECORDS SUMMARY | 2025-05-30 13:45 | XMS_ITS | Clinical Summary ---
Author Organization [facility] Address [facility] [address] [address] Phone Care Team Providers Care Senior Windows Systems Administrator Name Role Phone Reese Nieto MD Unavailable Ryan Boyle MD Primary Care Provider [phone] Allergies Active Allergy Reactions Criticality Noted Date Comments Escitalopram Oxalate GI Upset 01/26/2024 Sertraline GI Upset 01/26/2024 Medications cholecalciferol, vitamin D3, 25 mcg (1,000 unit) capsule Take 1,000 Units by mouth daily. Active dilTIAZem (CARDIZEM CD) 360 MG 24 hr capsule Take by mouth daily. 2 Active docusate sodium (COLACE) 100 MG capsule Take 1 capsule (100 mg total) by mouth daily as needed. 3 Active metoprolol succinate (TOPROL-XL) 200 MG 24 hr tablet Take 200 mg by mouth daily. Active TRELEGY ELLIPTA 200-62.5-25 mcg inhalerIndicatio ns:Chronic obstructive pulmonary disease take 1 puff by mouth every day 180 each 3 4 Active levalbuterol (XOPENEX HFA) 45 mcg/actuation inhaler Inhale 2 puffs into the lungs every 6 (six) hours as needed for shortness of breath/dyspnea . 4 Active apixaban (ELIQUIS) 5 mg tablet Take 1 tablet (5 mg total) by mouth 2 (two) times a day. 60 tablet 11 4 Active nystatin (NYSTOP) powder Apply topically 4 (four) times a day. 60 g 2 5 Active hydrocortisone 2.5 % creamIndications :External hemorrhoid Apply topically 2 (two) times a day. 30 g 2 5 Active hydrOXYzine (ATARAX) 25 MG tablet TAKE 1 TABLET BY MOUTH 2 TIMES A DAY NEEDED FOR ANXIETY. 180 tablet 1 5 Active Active Problems Problem Noted Date Diagnosed Date DIANNA (obstructive sleep apnea) 10/26/2024 Hypoxemia 08/30/2024 Dependence on continuous supplemental oxygen 06/2024 Tubular adenoma of colon 08/30/2024 Mild anxiety 01/26/2024 S/P bilateral inguinal hernia repair 01/26/2024 Severe obesity (BMI 35.0-39.9) with comorbidity 09/18/2023 Subclinical hypothyroidism 06/10/2023 Assessment & Plan (09/07/2024 12:45 PM EST): Typical atrial flutter 03/12/2022 Diverticulosis 04/17/2020 Venous insufficiency of both lower extremities 0 11/25/2019 Vitamin D deficiency 11/18/2019 Elevated TSH 11/18/2019 Bilateral leg pain 11/18/2019 Elevated PSA 10/22/2018 Tubular adenoma 10/22/2018 COPD, severe 10/22/2018 Resolved Problems Problem Noted Date Diagnosed Date Resolved Date Nicotine dependence, cigaret justin, w unsp disorders 10/22/2018 02/28/2025 Encounters Date Type Department Care Team Description 02/28/2025 11:45 AM EDT Office Visit [facility] [place] [address] Ryan Boyle MD COPD, severe (Primary Dx); Typical atrial flutter; Hypoxemia from Last 3 Months Immunizations Immunization Administration Dates Next Due COVID-19 (Pre-07/13) Pfizer Vaccine, mRNA, PF 02/03/2021,01/13/2021 INFLUENZA, SPLIT VIRUS, TRIVALENT PF 08/30/2024 INFLUENZA, SPLIT VIRUS, TRIV ALENT W/ PRESERVATIVE IM 05/30/2016,06/12/2015,05/28/2012,06/10 Influenza Quadrivalent Prese rvative Free IM 06/10/2023,06/27/2022,09/19/2021,08/24,10/22/2018 Influenza Recombinant Jt valent Preservative Free IM 11/18/2019 Influenza trivalent preserva tive free intradermal 06/03/2013 Pneumococcal conjugate PCV13 01/27/2020 Pneumococcal polysaccharide PPSV23 03/12/2022 Tdap 11/18/2019 Family History Medical History Relation Comments Colon cancer Brother 1 dx age 46 No Known Problems Brother 2 No Known Problems Brother 3 No Known Problems Brother 4 No Known Problems Brother 5 Kidney disease Father Prostate cancer Father COPD Mother Hypertension Mother Lung disease Mother Cancer Sibling No Known Problems Son Relation Status Comments Brother 1 Alive Brother 2 Alive Brother 3 Alive Brother 4 Alive Brother 5 Alive Father Mother Sibling Alive Son Alive Social History Tobacco Use Types Packs/Day Years Used Date Smoking Tobacco: Every Day Cigarettes 0.3 45.7 Started: 10/04/1979 Smokeless Tobacco: Never Tobacco Cessation:Ready to Q uit: Not Asked; Counseling Given: Not Answered Comments:5-6 cigarettes daily Alcohol Use Standard Drinks/Week Comments Not Currently 0 (1 standard drink = 0.6 oz pur e alcohol) Child or Family Care Answer Date Record ed Do you have problems with on e of the following making it difficult for you to work, study, or receive health care? No 08/25/2024 Education Answer Date Recorded Are you interested in help w ith more adult education (for example, completing high school, GED, job training, learning the German language, technical skills, or developing parenting skills)? No 08/25/2024 Are you concerned about learning? Not on file 08/25/2024 No 08/25/2024 Yes 08/25/2024 Food Answer Date Recorded Within the past 6 months we worried whether our food would run out before we got money to buy more. Never True 08/25/2024 Within the past 6 months the food we bought just didn't last and we didn't have enough money to get more. Never True Residential Stability Answer Date Recor ded What is your housing situation today? I have river [place] 08/25/2024 How many times have you move d in the past 12 months? Zero (I did not move) 08/25/2024 Paying for Meds Answer Date Recorded Do you have trouble paying for medicines? No 08/25/2024 Paying Utility Bills Answer Date Record ed Do you have trouble paying your heating or elect ricity bill? No 08/25/2024 Transportation Answer Date Recorded Has the lack of transportati on kept you from medical appointments or from getting medications? No 08/25/2024 Unemployment Answer Date Recorded Are you currently unemployed or working on a part-time or temporary basis, and looking for work? No 03/11/2022 Digital Access Answer Date Recorded No 08/25/2024 Yes 08/25/2024 Do you have reliable internet access at home? Ye s 08/25/2024 Do you have a device (e.g., phone, tablet, computer) with a working camera? Yes 08/25/2024 Intimate Partner Violence Answer Date R ecorded Denied Basic Needs Not on file 08/25/2024 In the past 12 months have y ou been in a relationship with a person who hurts, threatens, or tries to control you? No 08/25/2024 Worried food would run out Not on file 08/25 In the past 12 months have y ou been in a relationship with a person who hurts, threatens, or tries to control you? No 08/25/2024 Sex and Gender Information Value Date Recorded Sex Assigned at Not on file Legal Sex Male 9:46 PM EDT Gender Identity Not on file Sexual Orientation Not on file Last Filed Vital Signs Vital Sign Reading Time Taken Comments Blood Pressure 102/70 02/28/2025 11:19 AM EDT Pulse 90 02/28/2025 11:19 AM EDT Temperature 36.4 C (97.5 F) 02/28/2025 11:19 AM EDT Respiratory Rate 16 09/18/2023 12:5 4 PM EST Oxygen Saturation 96% 02/28/2025 11: 19 AM EDT Inhaled Oxygen Concentration - - Weight 122.6 kg (270 lb 3.2 oz) 025 11:19 AM EDT Height 177.5 cm (5' 9.88 ) 02/28/2025 1 1:19 AM EDT Body Mass Index 38.9 02/28/2025 11:19 AM EDT Plan of Treatment Upcoming Encounters Date Type Department Care Team (Late st Contact Info) Description 09/05/2025 11:00 AM EST Office Visit [facility] [address] [place] [address] [place] [address] Ryan Boyle MD [address] [facility], [address] [place] [address] [email or web address] Health Maintenance Due Date Last Done Comments COLOGUARD 2006 FIT TEST 2006 FOBT 2006 SIGMOIDOSCOPY 2006 VIRTUAL COLONOSCOPY 2006 ZOSTER VACCINES (1 of 2) 2011 RSV VACCINE (1 - Risk 60-74 years 1-dose series) 2021 COLONOSCOPY 04/29/2024 04/29/2019, 0805/2019, 11/18/2013 COLORECTAL CANCER SCREENING 04/29/2024 INFLUENZA VACCINE (#1) 2025 , 06/10/2023, 06/27/2022, Additional history exists COVID-19 VACCINE (2024- season) 2025 09/19/2021, 02/03/2021, 01/13/2021 DEPRESSION SCREENING 08/25/2025 08/25/2024, 08/25/20 24 CREATININE LEVEL 08/30/2025 08/30/2024, 03/2024, 09/30/2022, Additional history exists SMOKING Hx and SMOKELESS TOBACCO SCREENING 02/28/2026 02/28/2025 LIPID PANEL 03/07/2027 03/07/2022, 10/23, 10/22/2018, Additional history exists PNEUMOCOCCAL VACCINES (50+ years) (3 of 3 - PCV20 or PCV21) 03/12/2027 03/12/2022, 01/27/2020 SCREENING FOR DIABETES 08/30/2027 4, 09/30/2022, 11/28/2015 Adult Td,Tdap Booster 11/18/2029 11/18/2019 HEPATITIS C SCREENING Completed 11/18/2019 HIV ONE-TIME SCREENING (18-65 YEARS) Completed 11/18/2019 HEPATITIS A VACCINES Aged Out No long er eligible based on patient's age to complete this topic HIB VACCINES Aged Out No longer eligi ble based on patient's age to complete this topic MENINGOCOCCAL VACCINES (ACWY) Aged Out No longer eligible based on patient's age to complete this topic MENINGOCOCCAL VACCINES (B) Aged Out N o longer eligible based on patient's age to complete this topic Medical Devices Implanted Type Area Engineering Writer Device Identifier Shelf Expiration Date Model / Serial / Lot Mesh Graft 1.6x1.9in 4.1 4.8cm Lg Perfix Polypropylene Monofilament Plug Inguinal Hernia Soft Tissue Repair Cs/2ea - [id number] Implanted:Qty: 1 on 05/04/2020 by Rose Mary Gan MD at [facility] STANDARD Left: Groin DAVOL 09/17/2024 [id number] / / [id number] Mesh Graft 1.6x1.9in 4.1 4.8cm Lg Perfix Polypropylene Monofilament Plug Inguinal Hernia Soft Tissue Repair Cs/2ea - [id number] Implanted:Qty: 1 on 05/04/2020 by Rose Mary Gan MD at [facility] STANDARD Right: Groin DAVOL 07/18/2024 [id number] / / [id number] Procedures Procedure Name Priority Date/Time Associated Diagnosis Comments COMPREHENSIVE METABOLIC PANEL Routine 08/30/2024 11:44 AM EST Venous insufficiency of both lower extremities LIPID PANEL Routine 03/07/2022 9:21 AM EDT Routine medical exam HEPATITIS C ANTIBODY, QUALITATIVE Routine 11/18/2019 2:29 PM EST Encounter for screening for HIV HM COLONOSCOPY FOR RESULT ENTRY ONLY Routine 04/29/2019 OUTSIDE GLUCOSE FASTING Routine 11/28/2015 from Last 3 Months or Most Recently Relevant to Health Maintenance Results * (ABNORMAL) Comprehensive metabolic panel (08/30/2024 11:44 AM EST) SODIUM 139 133 - 146 mmol/L [facility] POTASSIUM 4.9 3.3 - 5.1 mmol/L [facility] CHLORIDE 100 96 - 108 mmol/L [facility] CO2 31 21 - 35 mmol/L [facility] BUN 7 6 - 19 mg/dL [facility] CREATININE 0.60 0.5 - 1.5 mg/dL [facility] GLUCOSE 106(H) 70 - 99 mg/dL [facility] ALBUMIN 4.1 3.9 - 4.8 g/dL [facility] TOTAL PROTEIN 7.5 6.5 - 8.0 g/dL [facility] CALCIUM 9.6 8.4 - 10.3 mg/dL [facility] ALKALINE PHOSPHATASE 109 39 - 117 U/L [facility] TOTAL BILIRUBIN 0.5 0.0 - 1.2 mg/dL [facility] AST 20 0 - 37 U/L [facility] ALT 12 0 - 40 U/L [facility] GLOBULIN 3.4 1 - 4.8 g/dL [facility] EGFR 109 >59 mL/min/1.7 3m2 [facility] Comment:Estimated glomerular filtration rate calculated using the CKD-EPI refit equation. ANION GAP 13 10 - 20 mmol/L [facility] Blood 08/30/2024 11:4 4 AM EST 08/30/2024 11:46 AM EST us Ryan Boyle MD LAB BLOOD ORDERABLES Final Result Performing Organization Address City/State/[facility] Co de Phone Number [facility] [address] [place] [address] * (ABNORMAL) Lipid panel (03/07/2022 9:21 AM EDT) HDL 64 mg/dL [facility] Comment: Interpretation <40 mg/dL: Low HDL cholesterol (major risk factor for CHD) Greater than or equal to 60 mg/dL: High HDL cholesterol ( negative risk factor for CHD) HDL - cholesterol is affected by a number of factors, e.g. smoking, excerise, hormones, sex and age. CHOLESTEROL 183 0 - 240 mg/dL [facility] TRIGLYCERIDES 40 30 - 160 mg/dL [facility] LDL 111 50 - 129 mg/dL [facility] Comment: LDL levels in terms of risk for coronary heart disease: <100 mg/dL: Optimal 100-129 mg/dL: Near or above optimal 130-159 mg/dL: Borderline high 160-189 mg/dL: High >190 mg/dL: Very High CARDIAC RISK RATIO 2.9(L) 3.4 - 5.0 [facility] Blood 03/07/2022 9:21 AM EDT 03/07/2022 9:26 AM EDT Tanya Quintero NP LAB BLOOD ORDERABLES Final Resu lt [address] [address] * Hepatitis C antibody, qualitative (11/18/2019 2:29 PM EST) Pathologist [facility] HCV NON-REACTIV E NON-REACTI VE [facility] Blood 11/18/2019 2:29 PM EST 11/18/2019 2:39 PM EST Tanya Quintero NP LAB BLOOD ORDERABLES Final Resu lt [address] [address] * COLONOSCOPY FOR RESULT ENTRY ONLY (04/29/2019) Pathologist [facility] Colonoscopy tubular adenoma Historical Provider HEALTH MAINTENANCE Final Result * Outside Glucose,Fasting (11/28/2015) Pathologist [facility] Glucose, fasting - External 96 65 - 99 mg/dL Historical Provider LAB BLOOD ORDERABLES Katie l Result from Last 3 Months or Most Recently Relevant to Health Maintenance Insurance [facility] [employer] [facility] [place] [address] [facility] [place] [address] [place] [address] [facility] [employer] Advance Directives For more information, please contact: [phone] (9AM - 5PM [facility], Thursday-Thursday) Documents on File Type Date Recorded Patient Photography Professor Expl anation Healthcare Proxy 05/08/2020 6:52 AM * Full Code (Presumed) (Latest Code Status on File) Date Activated Date Inactivated Comments 05/04/2020 11:07 AM Care Teams Senior Windows Systems Administrator Relationship Specialty Start Date End Date Ryan Boyle MD [address] [place] [address], [address] [place] [address] [email or web address] PCP - General Family Medicine 11/24/23 Reese Nieto MD [address] [place] [address] [place] [phone] Internal Medicine 04/05/20 Additional Source Comments The information contained in this document represents components of the legal health record. It is not the complete legal health record.[facility]
--- OUTSIDE RECORDS SUMMARY | 2025-05-30 13:45 | XMS_ITS | Encounter Summary ---
Author Organization [facility] Address [address] [facility] [address] [place] [address] Phone Care Team Providers Care Packaging Sales Representative Name Role Phone Etna GreenTanya ferrell Suman MCCAULEY Primary Care Provider [phone] Reese Nieto MD Unavailable [phone] Ryan Boyle MD Primary Care Provider [phone] Encounter Details Date Type Department Care Team (Late st Contact Info) Description 03/13/2021 Procedure Pass [facility], Ct Scan - [address] [address] Social History Tobacco Use Types Packs/Day Years [...] Description 09/05/2025 11:00 AM EST Office Visit [facility] [address] [place] [id number] Ryan Boyle MD [address] [facility], [address] [place] [address] [email or web address] documented as of this encounter Visit Diagnoses Not on filedocumented in this encounter Additional Health Concerns Assessment Noted Time PHQ-2 Depression Total Score: 0 11/27/19 21 5:16 PM EST documented as of this encounter Care Teams Packaging Sales Representative Relationship Specialty Start Date End Date Tanya Quintero NP [email or web address] PCP - General Family Medicine 09/23/19 11/23/23 Ryan Boyle MD [address] [place] [address], [address] [place] [address] [email or web address] PCP - General Family Medicine 11/24/23 Reese Nieto MD [address] [place] [address] [place] [phone] Internal Medicine 04/05/20 documented as of this encounter Additional Source Comments The information contained in this document represents components of the legal health record. It is not the complete legal health record.[facility]
--- OUTSIDE RECORDS SUMMARY | 2025-05-30 13:45 | XMS_ITS | Patient Health Record ---
Author Organization [facility] Address [address] [place] [phone] Care Team Providers Care Traffic Signal Technician Name Role Phone Ryan Boyle MD Primary Care Provider Reese Singer Jr Unavailable Allergies No Known Allergies Reason For Referral [...] Status Risk Notes Problem Colon cancer screening (941563641) Colon cancer screening (V76.51) Active confirmed Problem 607000972 Colon cancer screening (Z12.11) Active confirmed Problem Long-term current use of anticoagulant (834949407) Anticoagulant long-term use (Z79.01) Active confirmed Vital Signs Temperature 98.6 degrees Fahrenheit 01/16/2025 Blood pressure diastolic 01 mm Hg 01/16/2025 Height 70.5 in 01/16/2025 Blood pressure systolic 001 mm Hg 01/16/2025 Weight 277 lbs 01/16/2025 BMI 39.18 kg/m2 01/16/2025 Encounters Encounter Location Date Provider Diagnosis [facility] [address] [place] [phone] 01/16/2025 Reese Nieto Jr Colon cancer screening Z12.11 and Anticoagulant long-term use Z79.01 [facility] [address] [place] [phone] 01/16/2025 Reese Nieto Jr [facility] [address] [place] [phone] 01/17/2025 Reese Nieto Jr [facility] [address] [place] [phone] 01/17/2025 Reese Nieto Jr [facility] [address] [place] [phone] 01/30/2025 Reese Nieto Jr [facility] [address] [place] [phone] 01/31/2025 Reese Nieto Jr Assessments Encounter Date Diagnosis [...] Insured Coverage Start Date Coverage End Date [facility] [id number] [place], [place] [id number] MELIDA HICKMAN Self - patient is the insured Medical (General) History Medical History History ICD Code COPD Anxiety Atrial fibrillation/flutter Colonoscopy 2019, 2 tubular adenomas, 5- year follow-up Surgical History Surgery Date(Month/Year) hernia repair
== END 2025-05-30 11:51 | disposition home or self-care (01) ==
PROVIDERS: PCP Family Medicine; Visit Provider Internal Medicine
DX: J44.9 Chronic obstructive pulmonary disease, unspecified (principal); R09.02 Hypoxemia; F17.200 Nicotine dependence, unspecified, uncomplicated; E66.9 Obesity, unspecified; G47.33 Obstructive sleep apnea (adult) (pediatric)
CPT/HCPCS: 99214